=== PATIENT | female | born 1950 | race Caucasian/White ===

== ENCOUNTER 2019-08-09 07:19 | Emergency (ER) | payer MEDICARE, SELFPAY ==
--- NOTE | 2019-08-09 07:23 | ED.ABDPAIN ---
HPI - Abdominal Pain General Chief Complaint: Abdominal Pain Stated Complaint: really bad stomach ache Time Seen by Provider: 08/09/19 07:22 Source: patient and family Mode of arrival: Ambulatory Limitations: no limitations History of Present Illness HPI narrative: 68-year-old female nonsmoker with history of bowel obstructions presents with a chief complaint of severe right-sided abdominal pain which woke her from sleep. She states it is crampy and colicky in nature and denies any provocation or palliation. She states it may radiate down into her right groin. She states reminds her of prior bowel obstructions. She had a bowel movement yesterday and has been nauseated but denies any vomiting. She has had no fever or chills MD complaint: abdominal pain and flank pain Onset (ago): hour(s) Pain Consistency: intermittent Location: RLQ and R flank Severity: severe Quality: cramping and stabbing Radiation: RLQ Relieving factors: nothing Exacerbating factors: nothing Associated symptoms: nausea Related Data Previous Rx's Medication Instructions Recorded hydrocodone-acetaminophen 1 tab PO Q4-6H PRN #10 tab 08/09/19 ketorolac 10 mg PO Q6H PRN #14 tab 08/09/19 ondansetron 4 mg PO TID-QID PRN #10 tab 08/09/19 tamsulosin [Flomax] 0.4 mg PO DAILY #10 cap 08/09/19 Allergies Allergy/AdvReac Type Severity Reaction Status Date / Time codeine Allergy Verified 08/09/19 07:45 Review of Systems Constitutional Constitutional: Denies chills, Denies fatigue, Denies fever(s), Denies frequent falls, Denies lethargy and Denies weakness Eyes Eyes: Denies change in vision, Denies eye discharge, Denies irritation and Denies loss of vision ENT Ears, Nose, Mouth, and Throat: Denies change in voice, Denies dizziness, Denies neck pain, Denies sore throat and Denies throat swelling Cardiovascular Cardiovascular: Denies chest pain, Denies irregular heart rhythm, Denies lightheadedness, Denies palpitations, Denies dyspnea, Denies dyspnea on exertion and Denies orthopnea Respiratory Respiratory: Denies cough, Denies dyspnea, Denies dyspnea on exertion and Denies wheezing Gastrointestinal Gastrointestinal: Denies abdominal pain, Denies change in bowel habits, Denies diarrhea, Denies nausea and Denies vomiting Genitourinary Genitourinary: Denies hematuria, Reports flank pain, Denies urinary incontinence and Denies urinary urgency Musculoskeletal Musculoskeletal: Denies back pain, Denies muscle weakness, Denies neck pain, Denies numbness and Denies tingling Integumentary/Breasts Skin/Breast: Denies pruritus, Denies erythema, Denies rash and Denies wounds Neurologic Neurologic: Denies behavioral changes, Denies confusion, Denies dizziness, Denies frequent falls, Denies loss of vision, Denies numbness, Denies tingling and Denies weakness Psychiatric Psychiatric: Denies anxiety, Denies behavioral changes, Denies confusion, Denies depression, Denies homicidal ideation and Denies suicidal ideation Endocrine Endocrine: Denies fatigue, Denies flushing and Denies palpitations Hematologic/Lymphatic Hematologic/Lymphatic: Denies easy bruising Allergic/Immunologic Allergic/Immunologic: Denies urticaria, Denies throat swelling and Denies wheezing Exam Narrative Exam Narrative: GENERAL: [68] year old patient appears stated age. Well-nourished, well-developed patient, in moderate, pacing, rubbing the right side of her abdomen HEAD: Atraumatic. Normocephalic. EYES: Pupils equal round and reactive. Extraocular motions intact. No scleral icterus. No injection or drainage. ENT: Nose without bleeding, purulent drainage. Throat without erythema, tonsillar hypertrophy or exudate. Airway patent. NECK: Trachea midline. Non tender CARDIOVASCULAR: Regular rate and rhythm without murmurs, gallops, or rubs. RESPIRATORY: Clear to auscultation. Breath sounds equal bilaterally. No wheezes, rales, or rhonchi. GASTROINTESTINAL: Abdomen soft, non-tender, nondistended. EXTREMITIES: No edema or joint tenderness. BACK: Nontender without deformity or crepitance. No flank tenderness. NEURO: AOx3. SKIN: No rash or erythema of visible areas Initial Vital Signs Initial Vital Signs: Vital Signs Temperature 97.8 F 08/09/19 07:31 Pulse Rate 86 08/09/19 07:31 Respiratory Rate 16 08/09/19 07:31 Blood Pressure 198/90 H 08/09/19 07:31 Pulse Oximetry 100 08/09/19 07:31 Course Orders Ordered: Discontinued Medications Sodium Chloride (Normal Saline 0.9%) 1,000 mls @ 150 mls/hr IV CONT ELENA Last Admin: 08/09/19 07:45 Dose: 150 mls/hr Documented by: DEBBISENEdwin Ketorolac Tromethamine (Toradol) 15 mg IV NOW ONE Stop: 08/09/19 07:34 Last Admin: 08/09/19 07:45 Dose: 15 mg Documented by: DEBBISENEdwin Ondansetron HCl (Zofran) 4 mg IV NOW ONE Stop: 08/09/19 07:34 Last Admin: 08/09/19 07:45 Dose: 4 mg Documented by: DEBBISENEdwin Vital Signs Vital signs: Vital Signs - 8 hr 08/09/19 11:26 Pulse Rate 87 Respiratory Rate 16 Blood Pressure [Left Arm] 184/77 H Pulse Oximetry 98 MDM - Abdominal Pain Lab Data Result diagrams: 08/09/19 07:37 08/09/19 07:37 Labs: Lab Results 08/09/19 08/09/19 08/09/19 Range/Units 07:37 07:37 07:37 WBC 9.1 (4.5-11.0) X10^3/uL RBC 4.40 (4.0-5.2) X10^6/uL Hgb 12.2 (12.0-16.0) g/dL Hct 37.3 (36-46) % MCV 84.7 (80-100) fL MCH 27.8 (26-34) PG MCHC 32.8 (30-36) % RDW 14.6 (11.6-14.8) % Plt Count 215 (150-400) X10^3/uL Neut % (Auto) 76.0 H (50-75) % Lymph % (Auto) 15.4 L (25-40) % [place] % (Auto) 6.7 (3-14) % Eos % (Auto) 1.4 L (2-4) % Baso % (Auto) 0.5 (0-2) % Neut # (Auto) 6900 (8328-3555) /uL Lymph # (Auto) 1400 (7222-4053) /uL [place] # (Auto) 600 (0-900) /uL Eos # (Auto) 100 (0-450) /uL Baso # (Auto) 0 (0-100) /uL Sodium 142 (137-145) mmol/L Potassium 3.7 (3.4-5.1) mmol/L Chloride 107 (98-107) mmol/L Carbon Dioxide 25 (22-32) mmol/L BUN 24 H (7-17) mg/dL Creatinine 1.10 H (0.52-1.04) mg/dL Estimated GFR 49.4 L (>60) mL/min BUN/Creatinine Ratio 21.8 (6-22) Glucose 152 H (80-110) mg/dL Lactate 2.4 H (0.7-2.1) mmol/L Calcium 9.2 (8.4-10.2) mg/dL Total Bilirubin 0.4 (0.2-1.3) mg/dL AST 35 (14-36) IU/L ALT 21 (<35) IU/L Alkaline Phosphatase 102 (38-126) U/L Total Protein 8.0 (6.3-8.2) g/dL Albumin 4.3 (3.5-5.0) g/dL Globulin 3.7 (1.7-4.1) g/dL Albumin/Globulin Ratio 1.2 (1.0-2.8) Lipase 159 (23-300) U/L 08/09/ Range/Units 10:15 WBC (4.5-11.0) X10^3/uL RBC (4.0-5.2) X10^6/uL Hgb (12.0-16.0) g/dL Hct (36-46) % MCV (80-100) fL MCH (26-34) PG MCHC (30-36) % RDW (11.6-14.8) % Plt Count (150-400) X10^3/uL Neut % (Auto) (50-75) % Lymph % (Auto) (25-40) % Kemper % (Auto) (3-14) % Eos % (Auto) (2-4) % Baso % (Auto) (0-2) % Neut # (Auto) (8078-7974) /uL Lymph # (Auto) (5023-9724) /uL Kemper # (Auto) (0-900) /uL Eos # (Auto) (0-450) /uL Baso # (Auto) (0-100) /uL Sodium (137-145) mmol/L Potassium (3.4-5.1) mmol/L Chloride (98-107) mmol/L Carbon Dioxide (22-32) mmol/L BUN (7-17) mg/dL Creatinine (0.52-1.04) mg/dL Estimated GFR (>60) mL/min BUN/Creatinine Ratio (6-22) Glucose (80-110) mg/dL Lactate 1.1 (0.7-2.1) mmol/L Calcium (8.4-10.2) mg/dL Total Bilirubin (0.2-1.3) mg/dL AST (14-36) IU/L ALT (<35) IU/L Alkaline Phosphatase (38-126) U/L Total Protein (6.3-8.2) g/dL Albumin (3.5-5.0) g/dL Globulin (1.7-4.1) g/dL Albumin/Globulin Ratio (1.0-2.8) Lipase (23-300) U/L Point of care testing: Urine Dip Bedside Urine Glucose Negative Bedside Urine Bilirubin + 1 Bedside Urine Ketone - Negative Urine Specific [place] 1.015 Bedside Urine Occult Blood +++ Bedside Urine pH 6.0 Bedside Urine Protein +/- 15 Bedside Urine Urobilinogen - Negative Bedside Urine Nitrite - Negative Bedside Urine Leukocytes - Negative Esterase Imaging Data CT scan - abdomen/pelvis: Radiologist's Impression: [place] [address] CT Scan Report Signed Patient: Wanda Martinez FMR#: [id number] : 1Acct:[id number] Age/Sex: 68 / FDate of Service: 08/09/19 Loc: ED Accession Number: [id number] Procedure: CT abdomen pelvis w con Ordering Provider: Robert Montano D.O. PROCEDURE: CT ABDOMEN PELVIS W CON INDICATIONS: severe abdominal pain, hx multiple bowel obstruction surgeri TECHNIQUE: After the administration of oral and intravenous contrast, 5 mm thick sections acquired from the diaphragms to the symphysis. 5 mm thick coronal and sagittal reformats were performed. For radiation dose reduction, the following was used: automated exposure control, adjustment of mA and/or kV according to patient size. COMPARISON: [facility], CT, ABD/PELVIS W/CON (PN), 09/29/2009, 17:09. FINDINGS: Image quality: Diagnostic. ABDOMEN: Lung bases: Lung bases are clear. Heart size is normal. Solid organs: The liver is mildly enlarged and measures up to 21.4 cm in craniocaudal dimension (image 47, series 4). The liver is noted to be hypodense when compared to the spleen. No obvious intrahepatic lesions are identified. The patient has had a previous cholecystectomy. There is no intrahepatic or extrahepatic biliary dilatation appreciated. The spleen is enlarged measures up to 15.0 cm in craniocaudal dimension. The size of the liver and spleen is similar to the examination from 2010. No focal splenic lesions are evident. The adrenals and pancreas are within normal limits. The kidneys are normal in size. There is mild right-sided hydronephrosis with associated perinephric edema. There is no 2-3 mm calculus evident within the proximal right ureter at the ureteropelvic junction (image 50, series 2). Scattered small ulcerative low attenuation are seen involving both kidneys, which appear to represent small renal cysts. The size and number of these lesions have increased since 2010. Peritoneum and bowel: The stomach is unremarkable. The small bowel loops are nondilated. A normal amount of stool is seen within the colon. There is sigmoid colonic diverticulosis. A redundant distal colon is noted. There is a fatty density identified within the hepatic flexure of the colon that measures up to approximately 3.8 x 2.0 cm, which was not appreciated on the previous examination and may represent fatty food material. A lipoma at the ileocecal valve is present. Postoperative changes of the small bowel are evident. There also postoperative changes of the anterior abdominal wall with mild peritoneal thickening and subcutaneous thickening. There may be a small fluid collection within the infraumbilical/periumbilical subcutaneous tissues that may contain peripheral calcifications or represent a hernia mesh. This potential fluid collection may measure up to approximately 3.1 x 1.6 x 5.6 cm (image 64, series 2). Prominent subcutaneous edema within this region is noted. No free fluid or loculated fluid collection is seen within the abdomen. No free air. Nodes and vessels: No retroperitoneal or mesenteric adenopathy. Aorta and inferior vena cava are normal in caliber. Aortic and iliac artery atherosclerosis is present. Bones: No acute fracture or suspicious osseous lesion is identified. Moderate degenerative changes of the spine are noted. PELVIS: Genitourinary: Bladder wall thickness is normal. The uterus is surgically absent. The ovaries may have been surgically removed or be atrophied. Miscellaneous: No inguinal hernias or adenopathy. No free fluid or loculated fluid collection is appreciated. Bones: No suspicious bony lesions. No acute pelvic fractures are evident. [id number] degenerative changes of the pelvic joints are present. IMPRESSION: 1. Small (2-3 mm) at least partially obstructing proximal right ureteral calculus at the ureteropelvic junction with mild to moderate associated hydronephrosis and perinephric edema. 2. Subcutaneous edema/thickening along the anterior midline periumbilical region is likely related to previous surgery. There is a questionable loculated fluid collection centered within this area of subcutaneous edema, which likely represents a postoperative seroma or hematoma. Please correlate clinically to exclude the possibility of a subcutaneous abscess or infection. 3. Postoperative changes of the small bowel without evidence of a complete bowel obstruction. 4 Fatty density within the lumen of the hepatic flexure of the colon may represent residual fatty food material. However, an intraluminal lipomatous lesion cannot be completely excluded. Please consider followup CT imaging of the abdomen approximately 2-4 weeks with oral and intravenous contrast. 5. Mild hepatosplenomegaly. Dictated by: Grant Montalvo M.D. on 08/09/2019 at 8:25 Approved by: Grant Montalvo M.D. on 08/09/2019 at 8:39 Discharge Plan Departure Patient Disposition: Home Clinical Impression: Calculus of kidney Discharge Date/Time: 08/09/19 11:27 Instructions: DI for Kidney Stones Activity Restrictions/Additional Instructions: *You have been diagnosed with [right-sided kidney stone] *What to do: *Take medications as directed *Follow up with your primary care provider in 2-3 days, call for an appointment. Let them know you were seen in the Emergency Department and that we ask that you be seen in follow up *Return to ER if you should have any new, worsening or concerning symptoms Prescriptions: New hydrocodone-acetaminophen 5-325 mg tablet 1 tab PO Q4-6H PRN (Reason: pain) Qty: 10 RF: 0 ketorolac 10 mg tablet 10 mg PO Q6H PRN (Reason: pain) Qty: 14 RF: 0 tamsulosin [Flomax] 0.4 mg capsule 0.4 mg PO DAILY Qty: 10 RF: 0 ondansetron 4 mg tablet,disintegrating 4 mg PO TID-QID PRN (Reason: nausea and vomiting) Qty: 10 RF: 0 Referrals: [facility] [Outside] Danielle Naranjo MD [Non-Staff] -
[2019-08-09 07:31] VITALS: BP 198/90; PULSE 86; RESP 16; TEMP 36.6; O2SAT 100
--- NOTE | 2019-08-09 07:35 | DI.RAD.S_ITS ---
PROCEDURE: XR ACUTE ABDOMEN SERIES INDICATIONS: Abdominal pain, hx SBO TECHNIQUE: One view chest and two views of the abdomen were acquired. COMPARISON: [facility], CR, SMALL BOWEL, BARIUM, 10/11/2009, 15:15. FINDINGS: Surgical changes and devices: p postoperative changes of the abdomen are identified. Scattered surgical cookie/clips are incidentally noted. There also are postsurgical changes of the lower cervical spine. Chest: The pulmonary vascular markings appear to be mildly increased within the perihilar regions. No focal consolidation is evident. No effusion or pneumothorax is present. The heart is mildly enlarged. There is aortic atherosclerosis. No pleural effusions. No pneumoperitoneum. Abdomen: No focal distended small bowel loops are identified demonstrating air-fluid levels. A normal amount of stool seen within the colon. No obvious pneumoperitoneum. No suspicious calcifications. Visualized solid organ contours appear normal. Bones: No suspicious bony lesions. IMPRESSION: 1. No bowel obstruction. 2. Borderline cardiomegaly with possible vascular congestion. Please correlate clinically. Dictated by: Grant Montalvo M.D. on 08/09/2019 at 7:32 Approved by: Grant Montalvo M.D. on 08/09/2019 at 7:35
[2019-08-09] MEDS: ONDANSETRON 4 MG/2 ML INJ IV (07:45)
[2019-08-09] MEDS: KETOROLAC 60 MG/2 ML VIAL 15 MG IV (07:45)
[2019-08-09] MEDS: SODIUM CHLORIDE 0.9% 1,000 ML 150 ML IV (07:45)
[2019-08-09 07:46] VITALS: BP 192/93; PULSE 83; O2SAT 96
[2019-08-09 07:51] LABS: Add Manual Diff / Slide Review NO; Basophils Absolute Auto 0 /uL (0-100); Basophils Percent Auto 0.5 % (0-2); Eosinophils Absolute Auto 100 /uL (0-450); Eosinophils Percent Auto 1.4 % (2-4); Hematocrit 37.3 % (36-46); Hemoglobin 12.2 g/dL (12.0-16.0); Lymphocytes Absolute Auto 1400 /uL (1100-4500); Lymphocytes Percent Auto 15.4 % (25-40); Mean Corpuscular HGB Conc 32.8 % (30-36); Mean Corpuscular Hemoglobin 27.8 PG (26-34); Mean Corpuscular Volume 84.7 fL (80-100); Monocytes Absolute Auto 600 /uL (0-900); Monocytes Percent Auto 6.7 % (3-14); Neutrophils Absolute Auto 6900 /uL (1500-7000); Platelet Count 215 X10^3/uL (150-400); Red Cell Distribution Width 14.6 % (11.6-14.8); White Blood Cell Count 9.1 X10^3/uL (4.5-11.0)
[2019-08-09 07:55] VITALS: BP 183/86; PULSE 81; RESP 20; O2SAT 97
[2019-08-09 08:00] VITALS: BP 174/84; PULSE 83; RESP 16; O2SAT 96
[2019-08-09 08:03] LABS: Lactate (Lactic Acid) 2.4 mmol/L (0.7-2.1)
[2019-08-09 08:04] LABS: Alanine Aminotransferase 21 IU/L (<35); Albumin 4.3 g/dL (3.5-5.0); Albumin Globulin Ratio 1.2 (1.0-2.8); Alkaline Phosphatase 102 U/L (38-126); Aspartate Aminotransferase 35 IU/L (14-36); BUN Creatinine Ratio 21.8 (6-22); Bilirubin Total 0.4 mg/dL (0.2-1.3); Blood Urea Nitrogen 24 mg/dL (7-17); Calcium 9.2 mg/dL (8.4-10.2); Carbon Dioxide 25 mmol/L (22-32); Chloride 107 mmol/L (98-107); Estimated Glomerular Filt Rate 49.4 mL/min (>60); Globulin 3.7 g/dL (1.7-4.1); Glucose 152 mg/dL (80-110); HEMOLYSIS < 15 (0-50); Lipase 159 U/L (23-300); Potassium 3.7 mmol/L (3.4-5.1); Sodium 142 mmol/L (137-145)
[2019-08-09 08:30] VITALS: BP 184/77; PULSE 94; RESP 16; O2SAT 95
--- NOTE | 2019-08-09 08:38 | DI.CT.S_ITS ---
PROCEDURE: CT ABDOMEN PELVIS W CON INDICATIONS: severe abdominal pain, hx multiple bowel obstruction surgeri TECHNIQUE: After the administration of oral and intravenous contrast, 5 mm thick sections acquired from the diaphragms to the symphysis. 5 mm thick coronal and sagittal reformats were performed. For radiation dose reduction, the following was used: automated exposure control, adjustment of mA and/or kV according to patient size. COMPARISON: [facility], CT, ABD/PELVIS W/CON (PNL), 09/29/2009, 17:09. FINDINGS: Image quality: Diagnostic. ABDOMEN: Lung bases: Lung bases are clear. Heart size is normal. Solid organs: The liver is mildly enlarged and measures up to 21.4 cm in craniocaudal dimension (image 47, series 4). The liver is noted to be hypodense when compared to the spleen. No obvious intrahepatic lesions are identified. The patient has had a previous cholecystectomy. There is no intrahepatic or extrahepatic biliary dilatation appreciated. The spleen is enlarged measures up to 15.0 cm in craniocaudal dimension. The size of the liver and spleen is similar to the examination from 2009. No focal splenic lesions are evident. The adrenals and pancreas are within normal limits. The kidneys are normal in size. There is mild right-sided hydronephrosis with associated perinephric edema. There is no 2-3 mm calculus evident within the proximal right ureter at the ureteropelvic junction (image 50, series 2). Scattered small ulcerative low attenuation are seen involving both kidneys, which appear to represent small renal cysts. The size and number of these lesions have increased since 2010. Peritoneum and bowel: The stomach is unremarkable. The small bowel loops are nondilated. A normal amount of stool is seen within the colon. There is sigmoid colonic diverticulosis. A redundant distal colon is noted. There is a fatty density identified within the hepatic flexure of the colon that measures up to approximately 3.8 x 2.0 cm, which was not appreciated on the previous examination and may represent fatty food material. A lipoma at the ileocecal valve is present. Postoperative changes of the small bowel are evident. There also postoperative changes of the anterior abdominal wall with mild peritoneal thickening and subcutaneous thickening. There may be a small fluid collection within the infraumbilical/periumbilical subcutaneous tissues that may contain peripheral calcifications or represent a hernia mesh. This potential fluid collection may measure up to approximately 3.1 x 1.6 x 5.6 cm (image 64, series 2). Prominent subcutaneous edema within this region is noted. No free fluid or loculated fluid collection is seen within the abdomen. No free air. Nodes and vessels: No retroperitoneal or mesenteric adenopathy. Aorta and inferior vena cava are normal in caliber. Aortic and iliac artery atherosclerosis is present. Bones: No acute fracture or suspicious osseous lesion is identified. Moderate degenerative changes of the spine are noted. PELVIS: Genitourinary: Bladder wall thickness is normal. The uterus is surgically absent. The ovaries may have been surgically removed or be atrophied. Miscellaneous: No inguinal hernias or adenopathy. No free fluid or loculated fluid collection is appreciated. Bones: No suspicious bony lesions. No acute pelvic fractures are evident. [id number] degenerative changes of the pelvic joints are present. IMPRESSION: 1. Small (2-3 mm) at least partially obstructing proximal right ureteral calculus at the ureteropelvic junction with mild to moderate associated hydronephrosis and perinephric edema. 2. Subcutaneous edema/thickening along the anterior midline periumbilical region is likely related to previous surgery. There is a questionable loculated fluid collection centered within this area of subcutaneous edema, which likely represents a postoperative seroma or hematoma. Please correlate clinically to exclude the possibility of a subcutaneous abscess or infection. 3. Postoperative changes of the small bowel without evidence of a complete bowel obstruction. 4 Fatty density within the lumen of the hepatic flexure of the colon may represent residual fatty food material. However, an intraluminal lipomatous lesion cannot be completely excluded. Please consider followup CT imaging of the abdomen approximately 2-4 weeks with oral and intravenous contrast. 5. Mild hepatosplenomegaly. Dictated by: Grant Montalvo M.D. on 08/09/2019 at 8:25 Approved by: Grant Montalvo M.D. on 08/09/2019 at 8:39
[2019-08-09 09:47] LABS: Reflexed Lactate in 2 Hours Y
[2019-08-09 10:32] LABS: Lactate 2HR (Lactic Acid Rflx) 1.1 mmol/L (0.7-2.1)
[2019-08-09 11:26] VITALS: BP 184/77; PULSE 87; RESP 16; O2SAT 98
== END 2019-08-09 11:27 | disposition home or self-care (01) ==
PROVIDERS: Emergency Provider Emergency Medicine
DX: N20.0 Calculus of kidney (principal)
CPT/HCPCS: 36415; 74022; 74177; 80053; 81003; 83605; 83690; 85025; 96361; 96374; 96375; 99284; 99285; J1885; J2405; Q9967

== ENCOUNTER 2020-03-21 19:45 | Emergency (ER) | payer MEDICARE, SELFPAY ==
[2020-03-21 19:47] VITALS: BP 178/101; PULSE 88; RESP 24; TEMP 36.8; O2SAT 99
--- NOTE | 2020-03-21 19:49 | DI.RAD.S_ITS ---
PROCEDURE: XR CHEST 1V INDICATIONS: chest pain TECHNIQUE: One view of the chest was acquired. COMPARISON: None. FINDINGS: Surgical changes and devices: None. Lungs and pleura: Lungs are clear. No pleural effusions or pneumothorax. Mediastinum: Mediastinal contours appear normal. Heart size is normal. Bones and chest wall: No suspicious bony lesions. Overlying soft tissues appear unremarkable. IMPRESSION: No acute disease. Dictated by: Rogelio Mendez M.D. on 03/21/2020 at 21:01 Approved by: Rogelio Mendez M.D. on 03/21/2020 at 21:01
--- NOTE | 2020-03-21 19:52 | ED_ITS ---
HPI - Chest Pain General Chief Complaint: Chest Pain Stated Complaint: Chest Pressure Time Seen by Provider: 03/21/20 19:46 Source: patient and EMS Mode of arrival: EMS Limitations: no limitations History of Present Illness HPI narrative: 69F non smoker with morbid obesity presents by EMS with the chief complaint of a few weeks of left-sided chest pain which is largely sharp and stabbing in nature and radiates to her. She denies any obvious pattern relating to provocation or palliation. She denies any exertional change in her symptoms. States there is no change deep breath or diet. On occasion she is dizzy but largely not. She denies any diaphoresis her shortness of breath nor cough. She has had no fever chills. She denies vomiting but has had occasional episode of nausea. She denies dysuria, urgency or frequency. She denies constipation but has had some loose stools. Eight days ago she was exposed to a person known to be positive for COVID-19 and just had a swab which confirm she too is positive. Related Data Previous Rx's Medication Instructions Recorded hydrocodone-acetaminophen 1 tab PO Q4-6H PRN #10 tab 08/09/19 ketorolac 10 mg PO Q6H PRN #14 tab 08/09/19 ondansetron 4 mg PO TID-QID PRN #10 tab 08/09/19 tamsulosin [Flomax] 0.4 mg PO DAILY #10 cap 08/09/19 Allergies Allergy/AdvReac Type Severity Reaction Status Date / Time codeine Allergy Verified 08/09/19 07:45 Review of Systems Constitutional Constitutional: Denies chills, Denies fatigue, Denies fever(s), Denies frequent falls, Denies lethargy and Denies weakness Eyes Eyes: Denies change in vision, Denies eye discharge, Denies irritation and Denies loss of vision ENT Ears, Nose, Mouth, and Throat: Denies change in voice, Denies dizziness, Denies neck pain, Denies sore throat and Denies throat swelling Cardiovascular Cardiovascular: Denies chest pain, Denies irregular heart rhythm, Denies lightheadedness, Denies palpitations, Denies dyspnea, Denies dyspnea on exertion and Denies orthopnea Respiratory Respiratory: Denies cough, Denies dyspnea, Denies dyspnea on exertion and Denies wheezing Gastrointestinal Gastrointestinal: Denies abdominal pain, Denies change in bowel habits, Denies diarrhea, Denies nausea and Denies vomiting Musculoskeletal Musculoskeletal: Denies neck pain and Denies numbness Integumentary/Breasts Skin/Breast: Denies pruritus, Denies erythema, Denies rash and Denies wounds Neurologic Neurologic: Denies behavioral changes, Denies confusion, Denies dizziness, Denies frequent falls, Denies loss of vision, Denies numbness and Denies weakness Psychiatric Psychiatric: Denies anxiety, Denies behavioral changes, Denies confusion, Denies depression, Denies homicidal ideation and Denies suicidal ideation Endocrine Endocrine: Denies fatigue, Denies flushing and Denies palpitations Hematologic/Lymphatic Hematologic/Lymphatic: Denies easy bruising Allergic/Immunologic Allergic/Immunologic: Denies urticaria, Denies throat swelling and Denies wheez ing Exam Narrative Exam Narrative: GENERAL: [69] year old patient appears stated age. Well- nourished, well-developed patient, in mild distress. Visibly anxious HEAD: Atraumatic. Normocephalic. EYES: Pupils equal round and reactive. Extraocular motions intact. No scleral icterus. No injection or drainage. ENT: Nose without bleeding, purulent drainage. Throat without erythema, tonsillar hypertrophy or exudate. Airway patent. NECK: Trachea midline. Non tender CARDIOVASCULAR: Regular rate and rhythm without murmurs, gallops, or rubs. RESPIRATORY: Clear to auscultation. Breath sounds equal bilaterally. No wheezes, rales, or rhonchi. GASTROINTESTINAL: Abdomen soft, non-tender, nondistended. EXTREMITIES: No edema or joint tenderness. BACK: Nontender without deformity or crepitance. No flank tenderness. NEURO: AOx3. SKIN: No rash or erythema of visible areas Initial Vital Signs Initial Vital Signs: Vital Signs Temperature 98.2 F 03/21/20 19:47 Pulse Rate 88 03/21/20 19:47 Respiratory Rate 24 03/21/20 19:47 Blood Pressure 178/101 H 03/21/20 19:47 Pulse Oximetry 99 03/21/20 19:47 Scores HEART Score Heart Score history: Slightly Suspicious Heart Score EKG: Normal Heart Score Age: > or = 65 years old Heart Score risk factors: 1-2 risk factors Heart Score troponin: < or = to normal limit Heart Score Total: 3 Course Course Course Narrative: Over duration of the visit patient has been reassured in visibly less anxious, reports to be feeling much better. Orders Ordered: ED Orders 03/21/20 19:49 XR chest 1V Stat EKG-12 Lead Stat 03/21/20 20:34 Complete Blood Count AUTO DIFF Stat Comprehensive Metabolic Panel Stat D Dimer Stat Ferritin Stat Lactate Dehydrogenase Stat Lipase Stat NT-proBNP (BNP-Adult 18+) Stat Partial Thromboplastin Time Stat Prothrombin Time INR Stat Troponin & CK Cardiac Panel Stat Vital Signs Vital signs: Vital Signs - 8 hr 03/21/20 22:19 03/21/20 22:30 03/21/20 22:31 Pulse Rate 84 78 78 Respiratory Rate 31 H 24 23 Blood Pressure 190/79 H Pulse Oximetry 98 99 98 03/21/20 23:00 03/21/20 23:01 Pulse Rate 80 83 Respiratory Rate 18 20 Blood Pressure 185/81 H Pulse Oximetry 97 96 MDM - Chest Pain Lab Data Result diagrams: 03/21/20 20:34 03/21/20 20:34 Labs: Lab Results 03/21/20 03/21/20 03/21/20 Range/Units 20:34 20:34 20:34 WBC 3.8 L (4.5-11.0) X10^3/uL RBC 4.33 (4.0-5.2) X10^6/uL Hgb 11.8 L (12.0-16.0) g/dL Hct 36.6 (36-46) % MCV 84.5 (80-100) fL MCH 27.2 (26-34) PG MCHC 32.2 (30-36) % RDW 14.7 (11.6-14.8) % Plt Count 161 (150-400) X10^3/uL Neut % (Auto) 67.8 (50-75) % Lymph % (Auto) 20.9 L (25-40) % [place] % (Auto) 9.9 (3-14) % Eos % (Auto) 1.0 L (2-4) % Baso % (Auto) 0.4 (0-2) % Neut # (Auto) 2600 (0602-4672) /uL Lymph # (Auto) 800 L (2641-8095) /uL [place] # (Auto) 400 (0-900) /uL Eos # (Auto) 0 (0-450) /uL Baso # (Auto) 0 (0-100) /uL PT 11.7 (10.1-12.7) SECONDS INR 1.0 (0.9-1.3) APTT 33 (26.4-36.2) SECONDS D-Dimer (<230) ng/mL Sodium 143 (137-145) mmol/L Potassium 3.4 (3.4-5.1) mmol/L Chloride 107 (98-107) mmol/L Carbon Dioxide 28 (22-32) mmol/L BUN 9 (7-17) mg/dL Creatinine 0.90 (0.52-1.04) mg/dL Estimated GFR > 60.0 (>60) mL/min BUN/Creatinine Ratio 10.0 (6-22) Glucose 99 (80-110) mg/dL Calcium 9.1 (8.4-10.2) mg/dL Ferritin (11-264) ng/mL Total Bilirubin 0.3 (0.2-1.3) mg/dL AST 46 H (14-36) IU/L ALT 35 H (<35) IU/L Alkaline Phosphatase 94 (38-126) U/L Lactate Dehydrogenase (313-618) U/L Total Creatine Kinase 99 (30-135) U/L CK-MB (CK-2) TNP CK-MB (CK-2) Rel Index TNP Troponin I < 0.012 (0.01-0.034) ng/mL NT-Pro-B Natriuret Pep (<125) pg/mL Total Protein 7.3 (6.3-8.2) g/dL Albumin 4.0 (3.5-5.0) g/dL Globulin 3.3 (1.7-4.1) g/dL Albumin/Globulin Ratio 1.2 (1.0-2.8) Lipase 140 (23-300) U/L 03/21/20 03/21/20 Range/Units 20:34 20:34 WBC (4.5-11.0) X10^3/uL RBC (4.0-5.2) X10^6/uL Hgb (12.0-16.0) g/dL Hct (36-46) % MCV (80-100) fL MCH (26-34) PG MCHC (30-36) % RDW (11.6-14.8) % Plt Count (150-400) X10^3/uL Neut % (Auto) (50-75) % Lymph % (Auto) (25-40) % [place] % (Auto) (3-14) % Eos % (Auto) (2-4) % Baso % (Auto) (0-2) % Neut # (Auto) (7209-5536) /uL Lymph # (Auto) (0787-9916) /uL [place] # (Auto) (0-900) /uL Eos # (Auto) (0-450) /uL Baso # (Auto) (0-100) /uL PT (10.1-12.7) SECONDS INR (0.9-1.3) APTT (26.4-36.2) SECONDS D-Dimer 220 (<230) ng/mL Sodium (137-145) mmol/L Potassium (3.4-5.1) mmol/L Chloride (98-107) mmol/L Carbon Dioxide (22-32) mmol/L BUN (7-17) mg/dL Creatinine (0.52-1.04) mg/dL Estimated GFR (>60) mL/min BUN/Creatinine Ratio (6-22) Glucose (80-110) mg/dL Calcium (8.4-10.2) mg/dL Ferritin 51 (11-264) ng/mL Total Bilirubin (0.2-1.3) mg/dL AST (14-36) IU/L ALT (<35) IU/L Alkaline Phosphatase (38-126) U/L Lactate Dehydrogenase 339 (313-618) U/L Total Creatine Kinase (30-135) U/L CK-MB (CK-2) CK-MB (CK-2) Rel Index Troponin I (0.01-0.034) ng/mL NT-Pro-B Natriuret Pep 69 (<125) pg/mL Total Protein (6.3-8.2) g/dL Albumin (3.5-5.0) g/dL Globulin (1.7-4.1) g/dL Albumin/Globulin Ratio (1.0-2.8) Lipase (23-300) U/L Imaging Data Chest x-ray: Radiologist's Impression: [address] [address] XRay Report Signed Patient: Wanda Martinez FMR#: [id number] : 1Acct:[id number] Age/Sex: 69 / FDate of Service: 03/21/20 Loc: ED Accession Number: [id number] Procedure: XR chest 1V Ordering Provider: Robert Montano D.O. PROCEDURE: XR CHEST 1V INDICATIONS: chest pain TECHNIQUE: One view of the chest was acquired. COMPARISON: None. FINDINGS: Surgical changes and devices: None. Lungs and pleura: Lungs are clear. No pleural effusions or pneumothorax. Mediastinum: Mediastinal contours appear normal. Heart size is normal. Bones and chest wall: No suspicious bony lesions. Overlying soft tissues appear unremarkable. IMPRESSION: No acute disease. Dictated by: Rogelio Mendez M.D. on 03/21/2020 at 21:01 Approved by: Rogelio Mendez M.D. on 03/21/2020 at 21:01 [facility] Narrative Medical decision making narrative: Multiple causes of chest pain considered incl uding PR, PE, pneumothorax, pneumonia, aortic dissection, and pleurisy. Patient reports no radiation, no diaphoresis, no provocation with exertion, and no vomiting Patient's symptoms improved over duration of stay with above-stated therapies. Findings and discharge diagnosis discussed with patient/family followed by verbalization of understanding Return precautions discussed with patient/family whom verbalize understanding. Discharge Plan Departure Patient Disposition: Home Clinical Impression: COVID-19, Atypical chest pain Discharge Date/Time: 03/22/20 01:00 Instructions: DI for Atypical Chest Pain, Coronavirus Disease 2019 Activity Restrictions/Additional Instructions: *You have been diagnosed with [ Known COVID 19 and Atypical Chest pain (EKG and labs are very reassuring)] *What to do: * per recommendations from the CDC and the [facility] Department of Health * stay home except to get medical care. Restrict activities outside your home, except for getting medical care. Do not go to work, school, or public areas. Avoid using public transportation, ride sharing, or taxis. * separate yourself from other people in your home. * call ahead before visiting your doctor * Wear a facemask * Cover your coughs and sneezes * Clean your hands often * Avoid sharing household items * Clean all high-touch services every day * Monitor your symptoms and seek prompt medical attention if your illness is worsening, particularly with difficulty in breathing. Discussed continuing home isolation * for individuals with symptoms who are confirmed or suspected cases of COVID-19 and are directed to care for themselves at home, discontinue home isolation under the following conditions: 1. At least 72 hours have passed since recovery, defined as resolution of fever without the use of fever reducing medications, and improvement in respiratory symptoms (cough, shortness of breath) AND, 2. At least 7 days have passed since symptoms 1st appeared Individuals with laboratory confirmed COVID-19 who have not had any symptoms may discontinue home isolation when at least 7 days have passed since the date of t heir 1st COVID-19 diagnostic test and have had no subsequent illness Prescriptions: No Action hydrocodone-acetaminophen 5-325 mg tablet 1 tab PO Q4-6H PRN (Reason: pain) Qty: 10 RF: 0 ketorolac 10 mg tablet 10 mg PO Q6H PRN (Reason: pain) Qty: 14 RF: 0 tamsulosin [Flomax] 0.4 mg capsule 0.4 mg PO DAILY Qty: 10 RF: 0 ondansetron 4 mg tablet,disintegrating 4 mg PO TID-QID PRN (Reason: nausea and vomiting) Qty: 10 RF: 0
[2020-03-21 21:18] LABS: Add Manual Diff / Slide Review NO; Basophils Absolute Auto 0 /uL (0-100); Basophils Percent Auto 0.4 % (0-2); Eosinophils Absolute Auto 0 /uL (0-450); Hematocrit 36.6 % (36-46); Hemoglobin 11.8 g/dL (12.0-16.0); Lymphocytes Absolute Auto 800 /uL (1100-4500); Lymphocytes Percent Auto 20.9 % (25-40); Mean Corpuscular HGB Conc 32.2 % (30-36); Mean Corpuscular Hemoglobin 27.2 PG (26-34); Mean Corpuscular Volume 84.5 fL (80-100); Monocytes Absolute Auto 400 /uL (0-900); Monocytes Percent Auto 9.9 % (3-14); Neutrophils Absolute Auto 2600 /uL (1500-7000); Neutrophils Percent Auto 67.8 % (50-75); Platelet Count 161 X10^3/uL (150-400); Red Blood Cell Count 4.33 X10^6/uL (4.0-5.2); Red Cell Distribution Width 14.7 % (11.6-14.8); White Blood Cell Count 3.8 X10^3/uL (4.5-11.0)
[2020-03-21 21:23] LABS: Prothrombin Time 11.7 SECONDS (10.1-12.7)
[2020-03-21 21:25] LABS: PTT Partial Thromboplastin Tim 33 SECONDS (26.4-36.2)
[2020-03-21 21:28] LABS: Alanine Aminotransferase 35 IU/L (<35); Albumin Globulin Ratio 1.2 (1.0-2.8); Alkaline Phosphatase 94 U/L (38-126); Aspartate Aminotransferase 46 IU/L (14-36); Bilirubin Total 0.3 mg/dL (0.2-1.3); Blood Urea Nitrogen 9 mg/dL (7-17); Calcium 9.1 mg/dL (8.4-10.2); Carbon Dioxide 28 mmol/L (22-32); Chloride 107 mmol/L (98-107); Creatine Kinase 99 U/L (30-135); Estimated Glomerular Filt Rate > 60.0 mL/min (>60); Globulin 3.3 g/dL (1.7-4.1); Glucose 99 mg/dL (80-110); HEMOLYSIS < 15 (0-50); Lactate Dehydrogenase 339 U/L (313-618); Lipase 140 U/L (23-300); Potassium 3.4 mmol/L (3.4-5.1); Sodium 143 mmol/L (137-145); Total Protein 7.3 g/dL (6.3-8.2)
[2020-03-21 21:37] LABS: D Dimer 220 ng/mL (<230)
[2020-03-21 21:38] LABS: NT-proBNP (BNP-Adult 18+) 69 pg/mL (<125)
[2020-03-21 21:40] LABS: Troponin I < 0.012 ng/mL (0.01-0.034)
[2020-03-21 22:03] LABS: Ferritin 51 ng/mL (11-264)
[2020-03-21 22:19] VITALS: PULSE 84; RESP 31; O2SAT 98
[2020-03-21 22:30] VITALS: PULSE 78; RESP 24; O2SAT 99
[2020-03-21 22:31] VITALS: BP 190/79; PULSE 78; RESP 23; O2SAT 98
[2020-03-21 23:00] VITALS: PULSE 80; RESP 18; O2SAT 97
[2020-03-21 23:01] VITALS: BP 185/81; PULSE 83; RESP 20; O2SAT 96
== END 2020-03-22 01:00 | disposition home or self-care (01) ==
PROVIDERS: Emergency Provider Emergency Medicine
DX: U07.1 COVID-19 (principal); R07.89 Other chest pain; E66.01 Morbid (severe) obesity due to excess calories
CPT/HCPCS: 36415; 71045; 80053; 82550; 82728; 83615; 83690; 83880; 84484; 85025; 85379; 85610; 85730; 93005; 99283; 99284

== ENCOUNTER → 2020-12-07 09:29 | Outpatient (CLI) | payer MEDICARE, SELFPAY ==
[2020-12-07 12:54] LABS: COVID19 -Nasal RAPID Negative (Negative)
== END ==
PROVIDERS: PCP Physician Assistant; Visit Provider Physical Medicine & Rehabilitation
DX: Z20.822 Contact with and (suspected) exposure to COVID-19 (principal)
CPT/HCPCS: 87635; C9803

== ENCOUNTER 2020-12-09 09:24 | Outpatient (CLI) | payer MEDICARE, SELFPAY ==
[2020-12-09] VITALS (7 sets, daily range): BP systolic 115–158; BP diastolic 78–113; PULSE 82–90; RESP 12–20; TEMP 36.6; O2SAT 97–100
--- NOTE | 2020-12-09 09:26 | DI.RAD.S_ITS ---
PROCEDURE: PAIN C/T INTERLAMINAR INJECT INDICATIONS: SPINAL STENOSIS COMPARISON: None. FINDINGS: Fluoroscopic spot filming was performed to verify placement of spinal needles at the C7-T1 level(s), as labeled on the films. Appropriate location(s) of the needle tip(s) was confirmed by injection of iodinated contrast. Dictated by: Rogelio Mendez M.D. on 12/09/2020 at 14:24 Approved by: Rogelio Mendez M.D. on 12/09/2020 at 14:25
[2020-12-09] MEDS: MIDAZOLAM 5 MG/5 ML VIAL IV (10:11)
[2020-12-09] MEDS: fentaNYL 100 MCG/2 ML INJ 50 MCG IV (10:11)
[2020-12-09] MEDS: DEXAMETHASONE 10 MG/ML VIAL 30 MG INJ (10:15)
[2020-12-09] MEDS: BUPIVACAINE 0.25% (PF) VIAL 2 ML INJ (10:15)
[2020-12-09] MEDS: IOPAMIDOL 15 ML VIAL 3 ML INJ (10:15)
--- NOTE | 2020-12-16 08:44 | P.PCN_ITS ---
Date/Time/Diagnoses Date of procedure: 12/09/20 Time of procedure: 09:44 Pre-procedure diagnosis: 1. CERVICAL STENOSIS, 2. CERVICAL HNP WITH UPPER EXTREMITY RADICULAR FEATURES Procedure Notes Procedure: FLUORSCOPICALLY GUIDED CONTRAST CONTROLLED INTERLAMINAR EPIDURAL STEROID INJECTION - C7/T1 TL MACKENZIE Indications: Wanda is referred by STAN Cantor for treatment of Cervical Stenosis. Physician: Ronald Gustafson Total Fluoroscopy time (seconds): 24 Total sedation minutes: 14 Complications: none Procedure in detail & Post-procedure care: DESCRIPTION OF PROCEDURE Following review of allergy and review of potential side effects and co mplications, including, but not necessarily limited to, infection, allergic reaction, local tissue breakdown, temporary as well as permanent nerve injury, stroke, paralysis, and possible , the patient indicated that patient understood and agreed to proceed. An informed consent document was signed by the patient, witnessed by a nurse, and placed in the patient's chart. Additionally, other treatment options including modalities, medications, and physical therapy were reviewed with the patient. After review of previous anaesthesic history and IV conscious sedation the patient was deemed safe to proceed with todays procedure with IV conscious sedation as ASA class II designation. Safety time-out was performed to confirm patient ID, procedure to be performed and site of procedure. IV sedation was accomplished with a combination of 3mg of Versed and 50mcg of Fentanyl administered by the RN after DO order, titrated to patient comfort during the course of the procedure while the patient remained responsive to all verbal commands. In the prone position, following sterile prep and drape of the cervical region, the C7/T1 translaminar space was identified fluoroscopically. The skin was anesthetized via a 25-gauge 1.5-inch needle with 1% lidocaine solution. At this point, a 25-gauge, 2.5-inch short bevel spinal needle was atraumatically introduced and advanced under fluoroscopic guidance into epidural space at the C7/T1 translaminar space. Depth was confirmed on lateral view. Radiological data, including multiple fluoroscopic views of the cervical spine, reveal a spinal needle at the C7/T1 translaminar space. Lateral views then show placement of the needle in the epidural space. Subsequent views show contrast material flowing superiorly and inferiorly in the epidural space. DSA fluoroscopy with live contrast injection, once again, confirmed no vascular or intrathecal uptake. At this point, using loss of resistance technique with saline and air, the epidural space was entered. Following negative aspiration, injection of approximately 1.5 cc of Isovue-200 with live fluoroscopy in the AP view confirmed epidural flow in the epidural space without vascular or intrathecal uptake observed. Subsequently, a test dose of 1 cc of 1% lidocaine solution was injected and patient was observed for two minutes without signs or symptoms of complications, including abdominal pain, shortness of breath, bilateral upper or lower extremity weakness, nausea and vomiting, prior to steroid injection. At this point, 3cc or 30mg of dexamethasone was then injected without incident. The patient tolerated the procedure well without signs or symptoms of complications prior to transfer to the recovery area for further monitoring The patient was then transferred to the recovery area where they were observed for an appropriate period of time after the injection. The patient reported a VAS score of 6 prior to the procedure and a post-procedure VAS of 0 POST OP INSTRUCTIONS The patient was provided a Pain Log to continue to record the patient's response to the target-specific procedure prior to the patient's follow-up visit with the referring physician. Additionally, specific post-injection care instructions and a contact number to our office were provided if concerns arise regarding possible complications associated with the procedure are suspected.
== END 2020-12-09 10:55 | disposition home or self-care (01) ==
LOC: RAD 09:25
PROVIDERS: PCP Physician Assistant; Referring Provider Physical Medicine & Rehabilitation; Visit Provider Physical Medicine & Rehabilitation
DX: M48.02 Spinal stenosis, cervical region (principal); M50.123 Cervical disc disorder at C6-C7 level with radiculopathy
CPT/HCPCS: 62321; 99152; J1100; J2250; J3010

== ENCOUNTER 2023-01-06 13:42 | Inpatient (IN) | payer MEDICARE, SELFPAY ==
[2023-01-06] VITALS (9 sets, daily range): BP systolic 132–195; BP diastolic 67–86; PULSE 61–109; RESP 14–20; TEMP 36.6–36.8; O2SAT 93–100; BMI 53.3
--- NOTE | 2023-01-06 | DI.RAD.S_ITS ---
PROCEDURE: XR GASTROGRAFIN CHALLENGE COMPARISON: None. INDICATIONS: sbo FINDINGS: There is a nasogastric tube. Postsurgical changes in stomach with skin cookie. Oral contrast was injected through the nasogastric tube. There is oral contrast in the stomach. Small bowel loops are dilated. No transitional point is identified. The findings suggest postoperative ileus. IMPRESSION: Suspect postoperative ileus. Sequential images suggested. Dictated by: Dequan Vaughan M.D. on 01/07/2023 at 0:27 Approved by: Dequan Vaughan M.D. on 01/07/2023 at 0:29
[2023-01-06] MEDS: ONDANSETRON 4 MG/2 ML INJ IV ×2 (14:15→21:15)
[2023-01-06 14:36] LABS: Alanine Aminotransferase 28 IU/L (<35); Albumin 4.3 g/dL (3.5-5.0); Albumin Globulin Ratio 1.2 (1.0-2.8); Alkaline Phosphatase 118 U/L (38-126); Aspartate Aminotransferase 40 IU/L (14-36); Bilirubin Total 0.5 mg/dL (0.2-1.3); Blood Urea Nitrogen 16 mg/dL (7-17); Calcium 9.3 mg/dL (8.4-10.2); Carbon Dioxide 27 mmol/L (22-32); Chloride 103 mmol/L (98-107); Estimated Glomerular Filt Rate > 60 mL/min (>60); Globulin 3.6 g/dL (1.7-4.1); Glucose 145 mg/dL (80-110); HEMOLYSIS < 15 (0-50); Lipase 115 U/L (23-300); Sodium 139 mmol/L (137-145); Total Protein 7.9 g/dL (6.3-8.2)
[2023-01-06 14:39] LABS: Add Manual Diff / Slide Review NO; Basophils Absolute Auto 0 /uL (0-100); Basophils Percent Auto 0.2 % (0-2); Eosinophils Absolute Auto 0 /uL (0-450); Eosinophils Percent Auto 0.4 % (2-4); Hematocrit 36.6 % (36-46); Hemoglobin 11.9 g/dL (12.0-16.0); Lymphocytes Absolute Auto 1100 /uL (1100-4500); Lymphocytes Percent Auto 9.2 % (25-40); Mean Corpuscular HGB Conc 32.4 % (30-36); Mean Corpuscular Hemoglobin 25.5 PG (26-34); Mean Corpuscular Volume 78.7 fL (80-100); Monocytes Absolute Auto 700 /uL (0-900); Neutrophils Absolute Auto 9600 /uL (1500-7000); Neutrophils Percent Auto 84.2 % (50-75); Platelet Count 241 X10^3/uL (150-400); Red Blood Cell Count 4.65 X10^6/uL (4.0-5.2); Red Cell Distribution Width 16.1 % (11.6-14.8); White Blood Cell Count 11.4 X10^3/uL (4.5-11.0)
--- NOTE | 2023-01-06 15:33 | ED.ABDPAIN ---
HPI - Abdominal Pain General Chief Complaint: Abdominal Pain Stated Complaint: ABD pain, Nausea, Diarrhea Time Seen by Provider: 01/06/23 15:33 Source: patient Mode of arrival: Ambulatory History of Present Illness HPI narrative: Patient 72-year-old female history of multiple small-bowel obstructions multiple surgeries gastric bypass with reversal presenting today with nausea vomiting area since 2:00 a.m.. She is been unable to keep anything in. She previously has had multiple small-bowel obstructions she is had gastric bypass with reversal. She is having intermittent episodes of pain as well. No fever or chills. Denies any chest pain or shortness breath. Related Data Home Medications Medication Instructions Recorded Confirmed meloxicam 15 mg tablet 15 mg PO DAILY 04/06/20 02/23/21 omeprazole 20 mg capsule,delayed 20 mg PO DAILY 04/06/20 02/23/21 release simvastatin 20 mg tablet 20 mg PO BEDTIME 04/06/20 02/23/21 amlodipine 5 mg tablet 5 mg PO DAILY 11/03/20 02/23/21 lactobacillus combination no.8 3 3,000 mmu cells PO DAILY 11/03/20 02/23/21 billion cell capsule (Adult Probiotic) Previous Rx's Medication Instructions Recorded cyclobenzaprine 10 mg tablet 10 mg PO BID PRN muscle spasm #60 02/23/21 tabs Allergies Allergy/AdvReac Type Severity Reaction Status Date / Time codeine Allergy Vomiting Verified 01/06/23 13:51 Review of Systems Review of Systems ROS Unobtainable: All systems reviewed & are unremarkable except as noted in HPI and below Patient History Medical History Cervical radiculopathy at C8 Cervicogenic headache COVID-19 Facet arthropathy, cervical Surgical History H/O heart surgery H/O neck surgery History of intestinal surgery Hx of appendectomy Status post cervical spinal fusion Family History Father Cancer Mother Blood infection Social History Smoking Status: Former smoker Smoking Status: Former smoker alcohol intake frequency: a few times a month Substance Use Type: does not use Exam Initial Vital Signs Initial Vital Signs: Vital Signs Temperature 97.8 F 01/06/23 13:51 Pulse Rate 61 01/06/23 13:51 Respiratory Rate 18 01/06/23 13:51 Blood Pressure 156/85 H 01/06/23 13:51 Pulse Oximetry 96 01/06/23 13:51 Oxygen Delivery Method Room Air 01/06/23 13:51 GENERAL: Alert 72-year-old female appears uncomfortable HEENT: Head atraumatic,EOMI, pupils reactive, face symmetric, moist mucous membranes CARDIOVASCULAR: Regular rate and rhythm without murmurs, rubs or gallops. RESPIRATORY: Breath sounds equal bilaterally, no wheezes rales or rhonchi. ABDOMEN: Soft, multiple scars slightly distended decreased bowel sounds mild tenderness left lower quadrant and epigastric region EXTREMITIES: Normal range of motion, no clubbing or edema. Neurovascularly intact NEUROLOGICAL: Alert and oriented x4. SKIN: Warm, dry, no laceration, no petechiae, no rashes or lesions. Course Orders Ordered: ED Orders 01/06/23 14:15 Complete Blood Count AUTO DIFF Stat Comprehensive Metabolic Panel Stat Lipase Stat 01/06/23 14:26 EKG-12 Lead Stat 01/06/23 14:50 Lactate (Lactic Acid) Stat 01/06/23 15:40 CT abdomen pelvis w con Stat 01/06/23 17:04 Consult to General Surgery Stat Dextrose/Sodium Chloride (Dextrose 5%-0.45% Ns) 1,000 mls @ 75 mls/hr IV CONT ELENA Last Admin: 01/06/23 19:06 Dose: 75 mls/hr Documented By: ABHIJIT Ketorolac Tromethamine (Ketorolac 30 Mg/Ml Vial) 30 mg IV Q6H ELENA Stop: 01/11/23 18:29 Labetalol HCl (Labetalol 20 Mg/4 Ml Syringe) 10 mg IV Q5MIN PRN PRN Reason: SBP >180 or DBP >110 Melatonin (Melatonin 3 Mg Tablet) 6 mg PO BEDTIME PRN PRN Reason: Insomnia Metoclopramide HCl (Metoclopramide 10 Mg/2 Ml Inj) 10 mg IV Q6HR PRN PRN Reason: Nausea And Vomiting Last Admin: 01/06/23 19:08 Dose: 10 mg Documented By: ABHIJIT Naloxone HCl (Naloxone 0.4 Mg/Ml Vial) 0.2 mg IV Q2MIN PRN PRN Reason: Opiate Reversal Ondansetron HCl (Ondansetron 4 Mg Odt) 4 mg PO NOW PRN PRN Reason: Nausea And Vomiting Ondansetron HCl (Ondansetron 4 Mg/2 Ml Inj) 4 mg IV NOW PRN PRN Reason: Nausea And Vomiting Last Admin: 01/06/23 14:15 Dose: 4 mg Documented By: MIKE Ondansetron HCl (Ondansetron 4 Mg/2 Ml Inj) 4 mg IV Q4HR [facility] Pantoprazole Sodium (Pantoprazole 40 Mg Vial) 40 mg IV DAILY [facility] Last Admin: 01/06/23 19:01 Dose: 40 mg Documented By: ABHIJIT Discontinued Medications Hydromorphone HCl (Hydromorphone 1 Mg Inj) 1 mg IV NOW ONE Stop: 01/06/23 15:41 Last Admin: 01/06/23 15:45 Dose: 1 mg Documented By: FRANCOIS Hydromorphone HCl (Hydromorphone 0.5 Mg Inj) 0.5 mg IV NOW ONE Stop: 01/06/23 17:43 Last Admin: 01/06/23 17:48 Dose: 0.5 mg Documented By: MIKE Hydromorphone HCl (Hydromorphone 0.5 Mg Inj) 0.5 mg IV Q3H PRN PRN Reason: Pain, Moderate (4-6) Hydromorphone HCl (Hydromorphone 1 Mg Inj) 1 mg IV Q4H PRN PRN Reason: Pain, Severe (7-10) Sodium Chloride (Normal Saline 0.9%) 1,000 mls @ 1,000 mls/hr IV BOLUS ONE Stop: 01/06/23 16:39 Last Infusion: 01/06/23 17:34 Dose: 0 mls/hr Documented By: Admin: 01/06/23 15:46 Dose: 1,000 mls/hr Documented By: FRANCOIS Sodium Chloride (Normal Saline 0.9%) 1,000 mls @ 100 mls/hr IV CONT [facility] Stop: 01/07/23 05:59 Lorazepam (Lorazepam 2 Mg/Ml Inj) 1 mg IV NOW ONE Stop: 01/06/23 18:52 Last Admin: 01/06/23 19:01 Dose: 1 mg Documented By: ABHIJIT Vital Signs Vital signs: Vital Signs - 8 hr 01/06/23 13:51 01/06/23 15:00 01/06/23 15:30 Temperature 97.8 F Pulse Rate 61 109 H Respiratory Rate 18 Blood Pressure 156/85 H 173/86 H 170/79 H Pulse Oximetry 96 95 Oxygen Delivery Method Room Air Room Air Oxygen Flow Rate 01/06/23 16:00 01/06/23 16:08 01/06/23 16:30 Temperature Pulse Rate 106 H 107 H 105 H Respiratory Rate 14 16 Blood Pressure 195/84 H 137/85 145/67 H Pulse Oximetry 95 93 100 Oxygen Delivery Method Room Air Room Air Nasal Cannula Oxygen Flow Rate 2 01/06/23 17:00 01/06/23 17:30 Temperature Pulse Rate 104 H 106 H Respiratory Rate 16 20 Blood Pressure 161/77 H 174/84 H Pulse Oximetry 100 99 Oxygen Delivery Method Nasal Cannula Room Air Oxygen Flow Rate 2 MDM - Abdominal Pain Lab Data 01/06/23 14:15 01/06/23 14:15 Labs: Lab Results 01/06/23 01/06/23 01/06/23 Range/Units 14:15 14:15 14:15 WBC 11.4 H (4.5-11.0) X10^3/uL RBC 4.65 (4.0-5.2) X10^6/uL Hgb 11.9 L (12.0-16.0) g/dL Hct 36.6 (36-46) % MCV 78.7 L (80-100) fL MCH 25.5 L (26-34) PG MCHC 32.4 (30-36) % RDW 16.1 H (11.6-14.8) % Plt Count 241 (150-400) X10^3/uL Neut % (Auto) 84.2 H (50-75) % Lymph % (Auto) 9.2 L (25-40) % [place] % (Auto) 6.0 (3-14) % Eos % (Auto) 0.4 L (2-4) % Baso % (Auto) 0.2 (0-2) % Neut # (Auto) 9600 H (9530-0126) /uL Lymph # (Auto) 1100 (0175-3240) /uL [place] # (Auto) 700 (0-900) /uL Eos # (Auto) 0 (0-450) /uL Baso # (Auto) 0 (0-100) /uL Sodium 139 (137-145) mmol/L Potassium 4.0 (3.4-5.1) mmol/L Chloride 103 (98-107) mmol/L Carbon Dioxide 27 (22-32) mmol/L BUN 16 (7-17) mg/dL Creatinine 0.80 (0.52-1.04) mg/dL Estimated GFR > 60 (>60) mL/min BUN/Creatinine Ratio 20.0 (6-22) Glucose 145 H (80-110) mg/dL Lactate (0.7-2.1) mmol/L Calcium 9.3 (8.4-10.2) mg/dL Magnesium 2.1 (1.6-2.3) mg/dL Total Bilirubin 0.5 (0.2-1.3) mg/dL AST 40 H (14-36) IU/L ALT 28 (<35) IU/L Alkaline Phosphatase 118 (38-126) U/L Total Protein 7.9 (6.3-8.2) g/dL Albumin 4.3 (3.5-5.0) g/dL Globulin 3.6 (1.7-4.1) g/dL Albumin/Globulin Ratio 1.2 (1.0-2.8) Lipase 115 (23-300) U/L 01/06/23 Range/Units 14:50 WBC (4.5-11.0) X10^3/uL RBC (4.0-5.2) X10^6/uL Hgb (12.0-16.0) g/dL Hct (36-46) % MCV (80-100) fL MCH (26-34) PG MCHC (30-36) % RDW (11.6-14.8) % Plt Count (150-400) X10^3/uL Neut % (Auto) (50-75) % Lymph % (Auto) (25-40) % [place] % (Auto) (3-14) % Eos % (Auto) (2-4) % Baso % (Auto) (0-2) % Neut # (Auto) (4402-7583) /uL Lymph # (Auto) (5008-0432) /uL [place] # (Auto) (0-900) /uL Eos # (Auto) (0-450) /uL Baso # (Auto) (0-100) /uL Sodium (137-145) mmol/L Potassium (3.4-5.1) mmol/L Chloride (98-107) mmol/L Carbon Dioxide (22-32) mmol/L BUN (7-17) mg/dL Creatinine (0.52-1.04) mg/dL Estimated GFR (>60) mL/min BUN/Creatinine Ratio (6-22) Glucose (80-110) mg/dL Lactate 1.7 (0.7-2.1) mmol/L Calcium (8.4-10.2) mg/dL Magnesium (1.6-2.3) mg/dL Total Bilirubin (0.2-1.3) mg/dL AST (14-36) IU/L ALT (<35) IU/L Alkaline Phosphatase (38-126) U/L Total Protein (6.3-8.2) g/dL Albumin (3.5-5.0) g/dL Globulin (1.7-4.1) g/dL Albumin/Globulin Ratio (1.0-2.8) Lipase (23-300) U/L Imaging Data CT scan - abdomen/pelvis: Radiologist's Impression: PROCEDURE:? CT ABDOMEN PELVIS W CON ? INDICATIONS:? vomiting, hx sbo multiple surgeries ? TECHNIQUE:? After the administration of intravenous contrast, axial sections acquired from the lung bases to the pubic symphysis.? Coronal and sagittal reformats were performed.? For radiation dose reduction, the following was used:? automated exposure control, adjustment of mA and/or kV according to patient size.? ? COMPARISON:? [facility], CT, CT ABDOMEN PELVIS W CON, 08/09/2019, 8:54. ? FINDINGS:? Image quality:? Excellent.? ? Lung bases:? Unremarkable. Heart:? Heart size is normal. Coronary atherosclerotic vascular calcifications are noted. ? ? ABDOMEN: Liver:? Unremarkable.? ? Gallbladder:? Status post cholecystectomy. Biliary ducts: No intrahepatic or extrahepatic biliary ductal dilatation identified.? Pancreas: Homogeneous enhancement without focal lesions or pancreatic ductal dilatation.? No peripancreatic inflammation or organized fluid collections. Spleen:? No splenomegaly Adrenal Glands:? Unremarkable.? ? Kidneys and Ureters: Kidneys are symmetric in size and enhancement, and there is no obstructive uropathy.? No perinephric inflammatory changes. Ureters are normal in course and caliber.? Stable appearance of bilateral renal cysts. ? Stomach and Bowel:? Stomach appears unremarkable.? There are segments of marked dilatation with fecalization involving small bowel both proximally and distally.? There appears to be a segment of markedly distended proximal small bowel which appears to taper abruptly near multiple surgical clips in the right mid abdomen (image 23/series 3 and image 40/series 2).? Dilated bowel measures up to 8.5 cm in diameter.? No pneumatosis.? There is also moderate small bowel dilatation with transition point in the anterior right lower abdomen in close vicinity to area of previous surgical change (these are seen on axial images 63 through 72/series 2 and coronal images 23 through 33/series 3).? The colon appears decompressed.? Colonic diverticulosis without acute diverticulitis. ? ? Peritoneum:? No abnormal intraperitoneal fluid.? No free air.? ? Ventral Wall: ? Moderate postsurgical scarring/soft tissue prominence over the ventral midline abdomen from the level of the umbilicus inferiorly. Abdominal Nodes:? No retroperitoneal or mesenteric adenopathy by size criteria.? Vessels:? Aorta and inferior vena cava are normal in size.? ? PELVIS: Pelvic Organs:? Uterus is not visualized and likely surgically absent..? ? Bladder:? Unremarkable.? ? Pelvic Nodes: No enlarged lymph nodes.? Miscellaneous: No hernias are seen. ? ? ? Bones: No acute vertebral body compression fractures. Multilevel spondylitic changes throughout the imaged spine.? No suspicious osseous lesions. ? ? IMPRESSION:? Redemonstration of extensive postsurgical changes involving the abdomen and anterior abdominal wall with several segments of abnormally dilated small bowel.? There appears to be one transition point in the mid abdomen anteriorly adjacent to surgical clips with marked dilatation of ileum proximally.? A 2nd transition point appears to be in the anterior right lower quadrant in region of extensive postsurgical changes with moderate dilatation of small bowel proximally.? Findings are compatible with small bowel obstruction likely related to postsurgical scarring/adhesions. ? Other chronic findings as above.? ? ? Dictated by: Gino Lobo M.D. on 01/06/2023 at 15:21 ? ? ECG Data Interpretation: Sinus rhythm rate 111 WI interval 138 QRS [address] changes or T-wave inversions MDM Narrative Medical decision making narrative: Patient is 72-year-old female presents today with nausea vomiting. Multiple abdominal surgeries with previous history of small-bowel obstructions. CT confirms to transition point small bowel obstruction. Dr. Isbell notified. States no NG tube unless actively vomiting. She actually is not been vomiting in the ED there is no evidence of GERDA electrolyte abnormality. Mild leukocytosis of 11 no anemia lactate is 1.7 no concern for ischemic bowel at this point. Pain is not out of proportion. Dr. Vasques updated on patient's symptoms and test results. Discharge Plan Departure Patient Disposition: Admitted As Inpatient Clinical Impression: SBO (small bowel obstruction) Admit Date/Time: 01/06/23 17:35 Admit Provider: Moises Vasques
--- NOTE | 2023-01-06 15:40 | DI.CT.S_ITS ---
PROCEDURE: CT ABDOMEN PELVIS W CON INDICATIONS: vomiting, hx sbo multiple surgeries TECHNIQUE: After the administration of intravenous contrast, axial sections acquired from the lung bases to the pubic symphysis. Coronal and sagittal reformats were performed. For radiation dose reduction, the following was used: automated exposure control, adjustment of mA and/or kV according to patient size. COMPARISON: [facility], CT, CT ABDOMEN PELVIS W CON, 08/09/2019, 8:54. FINDINGS: Image quality: Excellent. Lung bases: Unremarkable. Heart: Heart size is normal. Coronary atherosclerotic vascular calcifications are noted. ABDOMEN: Liver: Unremarkable. Gallbladder: Status post cholecystectomy. Biliary ducts: No intrahepatic or extrahepatic biliary ductal dilatation identified. Pancreas: Homogeneous enhancement without focal lesions or pancreatic ductal dilatation. No peripancreatic inflammation or organized fluid collections. Spleen: No splenomegaly Adrenal Glands: Unremarkable. Kidneys and Ureters: Kidneys are symmetric in size and enhancement, and there is no obstructive uropathy. No perinephric inflammatory changes. Ureters are normal in course and caliber. Stable appearance of bilateral renal cysts. Stomach and Bowel: Stomach appears unremarkable. There are segments of marked dilatation with fecalization involving small bowel both proximally and distally. There appears to be a segment of markedly distended proximal small bowel which appears to taper abruptly near multiple surgical clips in the right mid abdomen (image 23/series 3 and image 40/series 2). Dilated bowel measures up to 8.5 cm in diameter. No pneumatosis. There is also moderate small bowel dilatation with transition point in the anterior right lower abdomen in close vicinity to area of previous surgical change (these are seen on axial images 63 through 72/series 2 and coronal images 23 through 33/series 3). The colon appears decompressed. Colonic diverticulosis without acute diverticulitis. Peritoneum: No abnormal intraperitoneal fluid. No free air. Ventral Wall: Moderate postsurgical scarring/soft tissue prominence over the ventral midline abdomen from the level of the umbilicus inferiorly. Abdominal Nodes: No retroperitoneal or mesenteric adenopathy by size criteria. Vessels: Aorta and inferior vena cava are normal in size. PELVIS: Pelvic Organs: Uterus is not visualized and likely surgically absent.. Bladder: Unremarkable. Pelvic Nodes: No enlarged lymph nodes. Miscellaneous: No hernias are seen. Bones: No acute vertebral body compression fractures. Multilevel spondylitic changes throughout the imaged spine. No suspicious osseous lesions. IMPRESSION: Redemonstration of extensive postsurgical changes involving the abdomen and anterior abdominal wall with several segments of abnormally dilated small bowel. There appears to be one transition point in the mid abdomen anteriorly adjacent to surgical clips with marked dilatation of ileum proximally. A 2nd transition point appears to be in the anterior right lower quadrant in region of extensive postsurgical changes with moderate dilatation of small bowel proximally. Findings are compatible with small bowel obstruction likely related to postsurgical scarring/adhesions. Other chronic findings as above. Dictated by: Gino Lobo M.D. on 01/06/2023 at 15:21 Approved by: Gino Lobo M.D. on 01/06/2023 at 15:36
[2023-01-06] MEDS: HYDROMORPHONE 1 MG INJ IV (15:45)
[2023-01-06] MEDS: SODIUM CHLORIDE 0.9% 1,000 ML 1000 ML IV (15:46)
[2023-01-06 16:27] LABS: Lactate (Lactic Acid) 1.7 mmol/L (0.7-2.1)
--- NOTE | 2023-01-06 17:20 | PM.HP.1 ---
History of Present Illness History of Present Illness Date Patient Seen: 01/06/23 Time Patient Seen: 18:32 Chief complaint: ABD pain, Nausea, Diarrhea Narrative: Wanda Martinez is a 72-year-old female with past medical history of appendectomy, gastric bypass s/p reversal, past small-bowel obstructions, hypertension, hyperlipidemia, and GERD who presents with intractable nausea vomiting and found to have another SBO. Patient says she ate dinner normally last night then was awakened from sleep at 0100 this morning with acute diffuse abd pain. She then began dry-heaving constantly. She reports several bouts of SBO in the past which required surgery to fix. She says all of her surgeons are up in [place]. She is actively wretching and vomiting. Says her abd pain is diffuse. She would prefer not to receive IV dilaudid or morphine. She is ok trying toradol. In the ED patient's CT abd showed SBO with 2 separate transition points. Gen surg consulted. [facility] Medical History Cervical radiculopathy at C8 Cervicogenic headache COVID-19 Facet arthropathy, cervical Surgical History H/O heart surgery H/O neck surgery History of intestinal surgery Hx of appendectomy Status post cervical spinal fusion Family History Father Cancer Mother Blood infection Social History Smoking Status: Former smoker Meds Home Medications and Allergies Home Medications Medication Instructions Recorded Confirmed Type meloxicam 15 mg tablet 15 mg PO DAILY 04/06/20 02/23/21 History omeprazole 20 mg capsule,delayed 20 mg PO DAILY 04/06/20 02/23/21 History release simvastatin 20 mg tablet 20 mg PO BEDTIME 04/06/20 02/23/21 History amlodipine 5 mg tablet 5 mg PO DAILY 11/03/20 02/23/21 History lactobacillus combination no.8 3 3,000 mmu cells PO DAILY 11/03/20 02/23/21 History billion cell capsule (Adult Probiotic) cyclobenzaprine 10 mg tablet 10 mg PO BID PRN muscle spasm #60 02/23/21 02/23/21 Rx tabs Allergies Allergy/AdvReac Type Severity Reaction Status Date / Time codeine Allergy Vomiting Verified 01/06/23 13:51 Review of Systems Review of Systems Narrative: All other systems reviewed with the patient and are negative unless otherwise stated. Exam Vital Signs (past 8 hours): - 01/06/23 13:51 01/06/23 15:00 01/06/23 15:30 Temperature 97.8 F Pulse Rate 61 109 H Respiratory Rate 18 Blood Pressure 156/85 H 173/86 H 170/79 H Pulse Oximetry 96 95 Oxygen Delivery Method Room Air Room Air Oxygen Flow Rate 01/06/23 16:00 01/06/23 16:08 01/06/23 16:30 Temperature Pulse Rate 106 H 107 H 105 H Respiratory Rate 14 16 Blood Pressure 195/84 H 137/85 145/67 H Pulse Oximetry 95 93 100 Oxygen Delivery Method Room Air Room Air Nasal Cannula Oxygen Flow Rate 2 01/06/23 17:00 Temperature Pulse Rate 104 H Respiratory Rate 16 Blood Pressure 161/77 H Pulse Oximetry 100 Oxygen Delivery Method Nasal Cannula Oxygen Flow Rate 2 Oxygen Delivery Method Nasal Cannula Oxygen Flow Rate 2 Narrative Exam Narrative: GEN: ill-appearing, nauseated and wretching, obese HEENT: moist mucous membranes, PERRL NECK: trachea midline, no JVD CV: regular rate and rhythm, no murmurs PULM: clear bilaterally ABD: distended, diffusely tender EXT: warm and well perfused with no edema NEURO: awake, alert, oriented, no focal deficits Objective Labs 01/06/23 14:15 01/06/23 14:15 Labs: Laboratory Results - last 24 hr 01/06/23 01/06/23 01/06/23 14:15 14:15 14:50 WBC 11.4 H RBC 4.65 Hgb 11.9 L Hct 36.6 MCV 78.7 L MCH 25.5 L MCHC 32.4 RDW 16.1 H Plt Count 241 Neut % (Auto) 84.2 H Lymph % (Auto) 9.2 L [place] % (Auto) 6.0 Eos % (Auto) 0.4 L Baso % (Auto) 0.2 Neut # (Auto) 9600 H Lymph # (Auto) 1100 [place] # (Auto) 700 Eos # (Auto) 0 Baso # (Auto) 0 Sodium 139 Potassium 4.0 Chloride 103 Carbon Dioxide 27 BUN 16 Creatinine 0.80 Estimated GFR > 60 BUN/Creatinine Ratio 20.0 Glucose 145 H Lactate 1.7 Calcium 9.3 Total Bilirubin 0.5 AST 40 H ALT 28 Alkaline Phosphatase 118 Total Protein 7.9 Albumin 4.3 Globulin 3.6 Albumin/Globulin Ratio 1.2 Lipase 115 Assessment & Plan Assessment & Plan narrative: # recurrent small-bowel obstruction 2/2 multiple previous abd surgeries -CT abd pelvis with 2 separate transition points at areas of postsurgical adhesions -Gen surg consulted, ok with NG tube to intermittent suction as patient is having continuous wretching and vomiting -place NG to suction -strict NPO -IV antiemetics and IV toradol PRN -IVF # hypertension -hold home amlodipine due to NPO -labetalol IV as needed # hyperlipidemia -hold home statin while NPO # GERD -daily IV PPI Code status is full code. DVT prophylaxis with SCDs. Proxy is magdi Keller. I have reviewed home meds and used all available resources to reconcile the home meds. This patient will be admitted as obs and will require less than 2 midnights of hospital time to treat SBO.
[2023-01-06] MEDS: HYDROMORPHONE 0.5 MG INJ IV (17:48)
--- NOTE | 2023-01-06 17:50 | DI.RAD.S_ITS ---
PROCEDURE: XR CHEST 1V INDICATIONS: hypoxia TECHNIQUE: One view of the chest was acquired. COMPARISON: [facility], CR, XR CHEST 1V, 03/21/2020, 20:04. FINDINGS: Surgical changes and devices: Postsurgical changes of prior ACDF. Lungs and pleura: Minimal streaky bibasilar opacities likely representing atelectasis. No focal consolidation.. No pleural effusions or pneumothorax. Mediastinum: Mediastinal contours appear normal. Heart size is normal. Bones and chest wall: No suspicious bony lesions. Overlying soft tissues appear unremarkable. IMPRESSION: Minimal streaky bibasilar opacities favored to represent atelectasis. No focal consolidation seen. Otherwise, no acute cardiopulmonary abnormality seen. Dictated by: Gino Lobo M.D. on 01/06/2023 at 17:31 Approved by: Gino Loob M.D. on 01/06/2023 at 17:32
[2023-01-06 18:41] LABS: Magnesium 2.1 mg/dL (1.6-2.3)
[2023-01-06] MEDS: ONDANSETRON 4 MG/2 ML INJ (18:50)
--- NOTE | 2023-01-06 18:52 | DI.RAD.S_ITS ---
PROCEDURE: XR CHEST 1V INDICATIONS: post NG placement TECHNIQUE: One view of the chest was acquired. COMPARISON: [facility], CR, XR CHEST 1V, 01/06/2023, 18:00. FINDINGS: Surgical changes and devices: Nasogastric tube is in place with the distal tip extending below the level of the diaphragm. The distal tip is not well visualized on this study and presumably off the field of view. Lungs and pleura: Lungs are clear. No pleural effusions or pneumothorax. Mediastinum: Mediastinal contours appear normal. Heart size is normal. Bones and chest wall: No suspicious bony lesions. Overlying soft tissues appear unremarkable. IMPRESSION: Interval placement of nasogastric tube which appears to extend below the level of diaphragm. No acute cardiopulmonary abnormalities. Dictated by: Gino Lobo M.D. on 01/06/2023 at 18:11 Approved by: Gino Lobo M.D. on 01/06/2023 at 18:13
[2023-01-06] MEDS: LORazepam 2 MG/ML INJ 1 MG IV (19:01)
[2023-01-06] MEDS: PANTOPRAZOLE 40 MG VIAL IV (19:01)
[2023-01-06] MEDS: DEXTROSE 5%-0.45% NS 1,000 ML 75 ML IV (19:06)
[2023-01-06] MEDS: METOCLOPRAMIDE 10 MG/2 ML INJ IV (19:08)
[2023-01-06] MEDS: KETOROLAC 30 MG/ML VIAL IV ×2 (19:20→22:53)
--- NOTE | 2023-01-06 19:31 | PC.NURSE ---
Patient arrrived from ED at 1802. SBP 170's and patient c/o nausea. she is able to ambulate from stretcher to bed but then began vomitting green bile colored liquid 240cc. Hospitalist at bedside ordering anti nausea medications. Patient is started on IVF D51/2 NS at 75ml/hr, zofran, reglan, IV ativan and ketoralac given. Per orders NGT placed. Chest xray completed and read by MD Vasques at bedside. NGT to LIWS Immediately draining 300 cc fluid. Pt kept NPO. Gastrografin ordered by GI doctor evalutating patient at bedside and discussing plan of care with patient and . NGT suction off x2 hours after gastrografin administered and xray notified at 1935. Endorsed admission to oncoming RN.
--- NOTE | 2023-01-06 21:43 | PM.CN ---
History of Present Illness Consult details Date Patient Seen: 01/06/23 Time Patient Seen: 21:43 Chief complaint: ABD pain, Nausea, Diarrhea Narrative: 72F with numerous abdominal surgeries admitted for management of a small bowel obstruction. She presented to [facility] 01/06 with abdominal pain and emesis. CT A/P demonstrates two points of transition with distended bowel no free air. Afebrile WBC 11, normotensive and without tachycardia. Prior abdominal surgery includes appendectomy, cholecystectomy, gastric bypass and subsequent reversal, and at least 2 prior exlaps for SBO. Medical history is significant for morbid obesity, BMI 53, HTN. Meds Home Medications and Allergies Home Medications Medication Instructions Recorded Confirmed Type meloxicam 15 mg tablet 15 mg PO DAILY 04/06/20 01/06/23 History omeprazole 20 mg capsule,delayed 20 mg PO DAILY 04/06/20 01/06/23 History release simvastatin 20 mg tablet 20 mg PO BEDTIME 04/06/20 01/06/23 History amlodipine 5 mg tablet 5 mg PO DAILY 11/03/20 01/06/23 History lactobacillus combination no.8 3 3,000 mmu cells PO DAILY 11/03/20 01/06/23 History billion cell capsule (Adult Probiotic) cyclobenzaprine 10 mg tablet 10 mg PO BID PRN muscle spasm #60 02/23/21 01/06/23 Rx tabs trazodone 50 mg tablet 50 mg PO ONCE PM PRN Sleep 01/06/23 01/06/23 History Allergies Allergy/AdvReac Type Severity Reaction Status Date / Time codeine Allergy Vomiting Verified 01/06/23 13:51 Exam Vital Signs (past 8 hours): - 01/06/23 13:51 01/06/23 15:00 01/06/23 15:30 Temperature 97.8 F Pulse Rate 61 109 H Respiratory Rate 18 Blood Pressure 156/85 H 173/86 H 170/79 H Pulse Oximetry 96 95 Oxygen Delivery Method Room Air Room Air Oxygen Flow Rate 01/06/23 16:00 01/06/23 16:08 01/06/23 16:30 Temperature Pulse Rate 106 H 107 H 105 H Respiratory Rate 14 16 Blood Pressure 195/84 H 137/85 145/67 H Pulse Oximetry 95 93 100 Oxygen Delivery Method Room Air Room Air Nasal Cannula Oxygen Flow Rate 2 01/06/23 17:00 01/06/23 17:30 01/06/23 20:19 Temperature 98.2 F Pulse Rate 104 H 106 H 101 H Respiratory Rate 16 20 20 Blood Pressure 161/77 H 174/84 H 132/78 Pulse Oximetry 100 99 95 Oxygen Delivery Method Nasal Cannula Room Air Oxygen Flow Rate 2 0 Oxygen Delivery Method Room Air Oxygen Flow Rate 0 Narrative Exam Narrative: Gen-Adult woman drowsy awakens to voice recently recieved pain medication Chest-Non labored resp Abdomen-Obese distended, no peritonitis, NGT with feculent material Objective Labs 01/06/23 14:15 01/06/23 14:15 Labs: Laboratory Results - last 24 hr 01/06/23 01/06/23 01/06/23 14:15 14:15 14:15 WBC 11.4 H RBC 4.65 Hgb 11.9 L Hct 36.6 MCV 78.7 L MCH 25.5 L MCHC 32.4 RDW 16.1 H Plt Count 241 Neut % (Auto) 84.2 H Lymph % (Auto) 9.2 L [place] % (Auto) 6.0 Eos % (Auto) 0.4 L Baso % (Auto) 0.2 Neut # (Auto) 9600 H Lymph # (Auto) 1100 [place] # (Auto) 700 Eos # (Auto) 0 Baso # (Auto) 0 Sodium 139 Potassium 4.0 Chloride 103 Carbon Dioxide 27 BUN 16 Creatinine 0.80 Estimated GFR > 60 BUN/Creatinine Ratio 20.0 Glucose 145 H Lactate Calcium 9.3 Magnesium 2.1 Total Bilirubin 0.5 AST 40 H ALT 28 Alkaline Phosphatase 118 Total Protein 7.9 Albumin 4.3 Globulin 3.6 Albumin/Globulin Ratio 1.2 Lipase 115 01/06/23 14:50 WBC RBC Hgb Hct MCV MCH MCHC RDW Plt Count Neut % (Auto) Lymph % (Auto) [place] % (Auto) Eos % (Auto) Baso % (Auto) Neut # (Auto) Lymph # (Auto) [place] # (Auto) Eos # (Auto) Baso # (Auto) Sodium Potassium Chloride Carbon Dioxide BUN Creatinine Estimated GFR BUN/Creatinine Ratio Glucose Lactate 1.7 Calcium Magnesium Total Bilirubin AST ALT Alkaline Phosphatase Total Protein Albumin Globulin Albumin/Globulin Ratio Lipase PFSH Medical History Cervical radiculopathy at C8 Cervicogenic headache COVID-19 Facet arthropathy, cervical Surgical History H/O heart surgery H/O neck surgery History of intestinal surgery Hx of appendectomy Status post cervical spinal fusion Family History Father Cancer Mother Blood infection Social History household members: none Tobacco & Substance Use Smoking Status: Former smoker Assessment & Plan Assessment and plan (1) SBO (small bowel obstruction): Status: Acute Assessment & Plan narrative: 72F with morbid obesity numerous abdominal surgeries with a SBO. Non toxic without peritonitis. CT personally reviewed at least one transition point appears to be adjacent to a prior small bowel anastamosis no free air or free fluid. I discussed with the patient and her brother that we will proceed with non operative management at this time. Gastrografin challenge has been ordered. If challenge is unsuccessful she will require an exlap which I have explained to them carries significant risk of morbidity and mortality given her comorbidities and the potential for a frozen abdomen. -NGT to suction -Gastrografin challenge
[2023-01-06 22:31] LABS: Bilirubin Urine UA NEGATIVE (NEGATIVE); Color Urine UA YELLOW; Glucose Urine UA NEGATIVE (Negative); Ketones Urine UA NEGATIVE (NEGATIVE); Leukocyte Esterase Urine UA TRACE (NEGATIVE); Nitrite Urine UA NEGATIVE (Negative); Occult Blood Urine UA NEGATIVE (Negative); Protein Urine UA 1+ (Negative); Specific Gravity Urine UA 1.015 (1.000-1.035); Urobilinogen Urine UA 0.2 E.U./dL (0.2)
[2023-01-06 22:33] LABS: pH Urine UA 6.5 (4.5-8.0)
[2023-01-06 22:39] LABS: Appearance Urine UA Slightly Cloudy; RBC Urine None Seen (0-5/HPF); WBC Urine 10-30/HPF (0-5/HPF)
[2023-01-06 22:40] LABS: Bacteria Urine Many (>30); Culture Indicated Urine Specimen Cultured; Squamous Epithelial Cell Urine 1-5 /HPF (0-5/HPF)
--- NOTE | 2023-01-06 23:42 | PC.NURSE ---
Patient is alert and oriented. Breath sounds CTA with RA sat of 95. HRR but tachy in low 100's. Earlier elevated BP resolved with BP now at 132/78. Projectile vomiting reportedly when admitted to room 216 after which NG was placed and at time of assessment denied nausea; NG is to LIS. BT hypoactive, abdomen is distended per patient and is not passing flatus. Did complain of 5/10 abdominal pain so hospitalist contacted and order received/given for additional 1x dose of Ketorolac after which patient was able to sleep. Up to BSC with SBA and voided 450cc and urine sent to lab; denied dysuria. Is able to move self in bed. Is wearing bilateral calf SCD's. Fall risk score is low.
[2023-01-07 00:02] VITALS: BP 143/74; PULSE 109; RESP 18; TEMP 36.8; O2SAT 94
[2023-01-07] MEDS: KETOROLAC 30 MG/ML VIAL IV ×2 (00:58→06:25)
[2023-01-07] MEDS: ONDANSETRON 4 MG/2 ML INJ IV ×3 (00:58→08:29)
[2023-01-07] MEDS: MORPHINE 2 MG/ML INJ IV (04:55)
--- NOTE | 2023-01-07 05:12 | DI.RAD.S_ITS ---
PROCEDURE: XR ABDOMEN 1V INDICATIONS: fu gastrografin challenge TECHNIQUE: One view of the abdomen acquired. COMPARISON: None. FINDINGS: Surgical changes and devices: None. Bowel: Oral contrast within the large bowel. Soft tissues: No suspicious abdominal calcifications. Visualized solid organ contours appear normal in size. Bones: No suspicious bony lesions. IMPRESSION: Interval passage of oral contrast into the large bowel. Dictated by: Collin Tomas M.D. on 01/07/2023 at 7:55 Approved by: Collin Tomas M.D. on 01/07/2023 at 7:56
[2023-01-07 05:40] VITALS: BP 131/65; PULSE 103; RESP 20; TEMP 36.6; O2SAT 94
[2023-01-07 05:44] LABS: Add Manual Diff / Slide Review NO; Basophils Absolute Auto 0 /uL (0-100); Basophils Percent Auto 0.1 % (0-2); Eosinophils Absolute Auto 0 /uL (0-450); Eosinophils Percent Auto 0.5 % (2-4); Hematocrit 34.4 % (36-46); Hemoglobin 11.2 g/dL (12.0-16.0); Lymphocytes Absolute Auto 1200 /uL (1100-4500); Lymphocytes Percent Auto 12.9 % (25-40); Mean Corpuscular HGB Conc 32.5 % (30-36); Mean Corpuscular Hemoglobin 25.7 PG (26-34); Mean Corpuscular Volume 79.2 fL (80-100); Monocytes Absolute Auto 900 /uL (0-900); Monocytes Percent Auto 9.9 % (3-14); Neutrophils Absolute Auto 7200 /uL (1500-7000); Neutrophils Percent Auto 76.6 % (50-75); Platelet Count 222 X10^3/uL (150-400); Red Blood Cell Count 4.34 X10^6/uL (4.0-5.2); White Blood Cell Count 9.4 X10^3/uL (4.5-11.0)
[2023-01-07 05:52] LABS: Blood Urea Nitrogen 20 mg/dL (7-17); Calcium 8.3 mg/dL (8.4-10.2); Carbon Dioxide 30 mmol/L (22-32); Chloride 106 mmol/L (98-107); Estimated Glomerular Filt Rate 53 mL/min (>60); Glucose 126 mg/dL (80-110); HEMOLYSIS < 15 (0-50); Potassium 3.7 mmol/L (3.4-5.1); Sodium 141 mmol/L (137-145)
[2023-01-07] MEDS: PANTOPRAZOLE 40 MG VIAL IV (08:29)
[2023-01-07] MEDS: cefTRIAXone 1,000 MG in SODIUM CHLORIDE 0.9% 100 ML 200 MG IV (10:00)
--- NOTE | 2023-01-07 10:40 | P.PN_ITS ---
Subjective Subjective Date Patient Seen: 01/07/23 Time Patient Seen: 10:41 Interval history: Successful Gastrografin challenge yesterday. No flatus or bowel movement yet. Feels significantly better than yesterday. Exam Vital Signs (past 8 hours): - 01/07/23 05:40 Temperature 97.9 F Pulse Rate 103 H Respiratory Rate 20 Blood Pressure 131/65 Pulse Oximetry 94 Oxygen Flow Rate 0 Oxygen Delivery Method Room Air Oxygen Flow Rate 0 Narrative Exam Narrative: General adult woman alert oriented no acute distress Abdomen soft nontender. Objective Labs 01/07/23 04:55 01/07/23 04:55 Labs: Laboratory Results - last 24 hr 01/06/23 01/06/23 01/06/23 14:15 14:15 14:15 WBC 11.4 H RBC 4.65 Hgb 11.9 L Hct 36.6 MCV 78.7 L MCH 25.5 L MCHC 32.4 RDW 16.1 H Plt Count 241 Neut % (Auto) 84.2 H Lymph % (Auto) 9.2 L [place] % (Auto) 6.0 Eos % (Auto) 0.4 L Baso % (Auto) 0.2 Neut # (Auto) 9600 H Lymph # (Auto) 1100 [place] # (Auto) 700 Eos # (Auto) 0 Baso # (Auto) 0 Sodium 139 Potassium 4.0 Chloride 103 Carbon Dioxide 27 BUN 16 Creatinine 0.80 Estimated GFR > 60 BUN/Creatinine Ratio 20.0 Glucose 145 H Lactate Calcium 9.3 Magnesium 2.1 Total Bilirubin 0.5 AST 40 H ALT 28 Alkaline Phosphatase 118 Total Protein 7.9 Albumin 4.3 Globulin 3.6 Albumin/Globulin Ratio 1.2 Lipase 115 Urine Color Urine Appearance Urine pH Ur Specific [place] Urine Protein Urine Glucose (UA) Urine Ketones Urine Occult Blood Urine Nitrate Urine Bilirubin Urine Urobilinogen Ur Leukocyte Esterase Urine RBC Urine WBC Ur Squamous Epith Cells Urine Bacteria Ur Culture Indicated? 01/06/23 01/06/23 01/07/23 14:50 22:12 04:55 WBC 9.4 RBC 4.34 Hgb 11.2 L Hct 34.4 L MCV 79.2 L MCH 25.7 L MCHC 32.5 RDW 16.0 H Plt Count 222 Neut % (Auto) 76.6 H Lymph % (Auto) 12.9 L [place] % (Auto) 9.9 Eos % (Auto) 0.5 L Baso % (Auto) 0.1 Neut # (Auto) 7200 H Lymph # (Auto) 1200 [place] # (Auto) 900 Eos # (Auto) 0 Baso # (Auto) 0 Sodium Potassium Chloride Carbon Dioxide BUN Creatinine Estimated GFR BUN/Creatinine Ratio Glucose Lactate 1.7 Calcium Magnesium Total Bilirubin AST ALT Alkaline Phosphatase Total Protein Albumin Globulin Albumin/Globulin Ratio Lipase Urine Color Yellow Urine Appearance Slightly cloudy Urine pH 6.5 Ur Specific [place] 1.015 Urine Protein 1+ H Urine Glucose (UA) Negative Urine Ketones Negative Urine Occult Blood Negative Urine Nitrate Negative Urine Bilirubin Negative Urine Urobilinogen 0.2 Ur Leukocyte Esterase Trace H Urine RBC None seen Urine WBC 10-30/hpf H Ur Squamous Epith Cells 1-5 /hpf Urine Bacteria Many (>30) H Ur Culture Indicated? Specimen cultured 01/07/23 04:55 WBC RBC Hgb Hct MCV MCH MCHC RDW Plt Count Neut % (Auto) Lymph % (Auto) [place] % (Auto) Eos % (Auto) Baso % (Auto) Neut # (Auto) Lymph # (Auto) [place] # (Auto) Eos # (Auto) Baso # (Auto) Sodium 141 Potassium 3.7 Chloride 106 Carbon Dioxide 30 BUN 20 H Creatinine 1.11 H Estimated GFR 53 L BUN/Creatinine Ratio 18.0 Glucose 126 H Lactate Calcium 8.3 L Magnesium Total Bilirubin AST ALT Alkaline Phosphatase Total Protein Albumin Globulin Albumin/Globulin Ratio Lipase Urine Color Urine Appearance Urine pH Ur Specific [place] Urine Protein Urine Glucose (UA) Urine Ketones Urine Occult Blood Urine Nitrate Urine Bilirubin Urine Urobilinogen Ur Leukocyte Esterase Urine RBC Urine WBC Ur Squamous Epith Cells Urine Bacteria Ur Culture Indicated? [facility] Medical History Cervical radiculopathy at C8 Cervicogenic headache COVID-19 Facet arthropathy, cervical Surgical History H/O heart surgery H/O neck surgery History of intestinal surgery Hx of appendectomy Status post cervical spinal fusion Family History Father Cancer Mother Blood infection Social History household members: none Smoking Status: Former smoker Assessment & Plan Assessment & Plan narrative: 72-year-old woman with a small-bowel obstruction now resolved. Gastrografin study reviewed demonstrates contrast within the colon. Nasogastric tube removed. Start clear liquid diet and advance as tolerated.
--- NOTE | 2023-01-07 10:52 | CM.DANOTE ---
Reviewed chart with existing information, and patient discussed in multidisciplinary rounds this morning. Met with patient and introduced to care coordination and discharge planning. They agree to assessment. Pt is a 72-year-old admitted for possible small bowel obstruction. She state she has had this happen previously since her surgery in 2007 at [facility] with Medicare. Confirms that she lives alone but has friends and is in touch with her 3 children. Son Krishna (in [place]) Daughter Felicity is local at, son Marvel in [place] [id number] [phone] and should be called first if medical emergency. DCP is for home with friends. PCP: Hyun Cantor, seen about 6 months ago she states DME: None Payer: [employer] Barriers: Diet tolerance, medical clearance. Tanika Hendricks RN, CM Discharge Planning/Care Management CM Discharge Assessment Start: 01/07/23 10:46 Freq: Status: Active Protocol: Document 01/07/23 10:46 BQ (Rec: 01/07/23 10:47 BQ [id number]) Discharge Planning Assessment Assigned Marine Engineering Professor Tanika Hendricks RN, CM Advance Directives? Yes Advance Directives on File No History Provided By Patient,Family Member, Significant Other Has Patient been admitted in last 30 No days? Prior Living Arrangements RV Household Members none Type of transporation used prior to Drives own vehicle admit Independent with ADL's Yes Is patient alert and oriented? Yes Caregiver for Another No Barriers to Discharge No Referrals Initiated None needed Medicare Choice List Provided No Whiteboard Updated in Patient Room with Yes name and ext. # of Marine Engineering Professor Review Status In Process Next Review Type Continued Stay Review
[2023-01-07 12:49] VITALS: BP 109/57; PULSE 111; RESP 18; TEMP 37; O2SAT 94
--- NOTE | 2023-01-07 17:21 | P.DS_ITS ---
History of Present Illness History of Present Illness Date Patient Seen: 01/07/23 Time Patient Seen: 17:21 Chief complaint: ABD pain, Nausea, Diarrhea Narrative: Per admitting provider, Wanda Martinez is a 72-year-old female with past medical history of appendectomy, gastric bypass s/p reversal, past small-bowel obstructions, hypertension, hyperlipidemia, and GERD who presents with intractable nausea vomiting and found to have another SBO. Patient says she ate dinner normally last night then was awakened from sleep at 0100 this morning with acute diffuse abd pain. She then began dry-heaving constantly. She reports several bouts of SBO in the past which required surgery to fix. She says all of her surgeons are up in [place]. She is actively wretching and vomiting. Says her abd pain is diffuse. She would prefer not to receive IV dilaudid or morphine. She is ok trying toradol. In the ED patient's CT abd showed SBO with 2 separate transition points. Gen surg consulted. 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 She initially worsened, requiring NG tube placement shortly after admission. However after placement she began to improve. Her abdominal pain started to improve and she underwent gastrograffin study with passage of contrast into the colon. Her NG tube was removed by surgery and her diet was advanced quickly. She improved more quickly than expected and after a couple of meals wished to discharge home after risk/benefit discussion. At the time of discharge, patient had tolerated a low residue diet without significant abdominal discomfort or nausea. Patient's obesity increases her risk for morbidity and mortality and adds to overall complexity of her presentation and management. Time Spent with Patient Time spent: Greater than 30 minutes Exam Vital Signs (past 8 hours): - 01/07/23 12:49 Temperature 98.6 F Pulse Rate 111 H Respiratory Rate 18 Blood Pressure 109/57 L Pulse Oximetry 94 Oxygen Flow Rate 0 Oxygen Delivery Method Room Air Oxygen Flow Rate 0 Narrative Exam Narrative: General: WDWN no acute distress, obese with BMI >50 CV RRR no m/r/g pulm CTA B/l Abdomen S NT ND Ext: no edema Objective Labs 01/07/23 04:55 01/07/23 04:55 Labs: Laboratory Results - last 24 hr 01/06/23 01/06/23 01/07/23 14:15 22:12 04:55 WBC 9.4 RBC 4.34 Hgb 11.2 L Hct 34.4 L MCV 79.2 L MCH 25.7 L MCHC 32.5 RDW 16.0 H Plt Count 222 Neut % (Auto) 76.6 H Lymph % (Auto) 12.9 L [place] % (Auto) 9.9 Eos % (Auto) 0.5 L Baso % (Auto) 0.1 Neut # (Auto) 7200 H Lymph # (Auto) 1200 [place] # (Auto) 900 Eos # (Auto) 0 Baso # (Auto) 0 Sodium Potassium Chloride Carbon Dioxide BUN Creatinine Estimated GFR BUN/Creatinine Ratio Glucose Calcium Magnesium 2.1 Urine Color Yellow Urine Appearance Slightly cloudy Urine pH 6.5 Ur Specific [place] 1.015 Urine Protein 1+ H Urine Glucose (UA) Negative Urine Ketones Negative Urine Occult Blood Negative Urine Nitrate Negative Urine Bilirubin Negative Urine Urobilinogen 0.2 Ur Leukocyte Esterase Trace H Urine RBC None seen Urine WBC 10-30/hpf H Ur Squamous Epith Cells 1-5 /hpf Urine Bacteria Many (>30) H Ur Culture Indicated? Specimen cultured 01/07/23 04:55 WBC RBC Hgb Hct MCV MCH MCHC RDW Plt Count Neut % (Auto) Lymph % (Auto) [place] % (Auto) Eos % (Auto) Baso % (Auto) Neut # (Auto) Lymph # (Auto) [place] # (Auto) Eos # (Auto) Baso # (Auto) Sodium 141 Potassium 3.7 Chloride 106 Carbon Dioxide 30 BUN 20 H Creatinine 1.11 H Estimated GFR 53 L BUN/Creatinine Ratio 18.0 Glucose 126 H Calcium 8.3 L Magnesium Urine Color Urine Appearance Urine pH Ur Specific [place] Urine Protein Urine Glucose (UA) Urine Ketones Urine Occult Blood Urine Nitrate Urine Bilirubin Urine Urobilinogen Ur Leukocyte Esterase Urine RBC Urine WBC Ur Squamous Epith Cells Urine Bacteria Ur Culture Indicated? PFSH Medical History Cervical radiculopathy at C8 Cervicogenic headache COVID-19 Facet arthropathy, cervical Surgical History H/O heart surgery H/O neck surgery History of intestinal surgery Hx of appendectomy Status post cervical spinal fusion Family History Father Cancer Mother Blood infection Social History household members: none Smoking Status: Former smoker Discharge Plan Discharge Plan Patient Disposition: Home Provider Discharge Comment: You were admitted to the hospital with a small bowel obstruction which resolved with conservative management. No changes to home medications are recommended on discharge. You are okay to resume previous diet as well with no changes recommended. Discharge orders & Medications Prescriptions: Continued meloxicam 15 mg tablet 15 mg PO DAILY omeprazole 20 mg capsule,delayed release(DR/EC) 20 mg PO DAILY simvastatin 20 mg tablet 20 mg PO BEDTIME trazodone 50 mg tablet 50 mg PO ONCE PM PRN (Reason: Sleep) amlodipine 5 mg tablet 5 mg PO DAILY Adult Probiotic 3 billion cell capsule 3,000 mmu cells PO DAILY Rx Instructions: administer with a meal cyclobenzaprine 10 mg tablet 10 mg PO BID PRN (Reason: muscle spasm) Qty: 60 1RF Follow up/Referrals: Hyun Cantor PA-C [Primary Care Provider] - Diet/Activity/Treatments Diet: Diet as Tolerated Activity: As tolerated no restrictions Visit Report/Discharge Packet Stand Alone Forms: Patient Portal/API, Stroke Signs & Symptoms Discharge Data Primary Care Provider: Hyun Cantor Attending Provider: Moises Vasques Admit Date/Time: 01/06/23 17:35
--- NOTE | 2023-01-07 18:06 | PC.NURSE ---
Discharge Note Patient A&O, VSS, RA, no complaints of pain/discomfort. Patient agreeable to discharge plan. Discharge packet reviewed with patient, all questions/concerns addressed. PIV discontinued. Patient able to dress self and pack all belongings. Patient taken down via wheelchair to POV.
== END 2023-01-07 18:00 | disposition home or self-care (01) | DRG 390 ==
LOC: ED 15:33 → AC 01-07 10:34
PROVIDERS: Admitting Provider Student in an Organized Health Care Education/Training Program; Emergency Provider Emergency Medicine; PCP Physician Assistant; Referring Provider Emergency Medicine; Visit Provider Student in an Organized Health Care Education/Training Program
DX: K56.609 Unspecified intestinal obstruction, unspecified as to partial versus complete obstruction (principal); I10 Essential (primary) hypertension; E78.5 Hyperlipidemia, unspecified; K21.9 Gastro-esophageal reflux disease without esophagitis; Z87.891 Personal history of nicotine dependence
CPT/HCPCS: 36415; 71045; 74018; 74177; 80048; 80053; 81001; 83605; 83690; 83735; 85025; 87077; 87086; 87186; 93005; 96374; 96375; 96376; 99231; 99232; 99285; G0378; C9113; J0696; J1170; J1885; J2060; J2270; J2405; J2765; Q9967